=== PATIENT | female | born 1955 | race Caucasian/White ===

== ENCOUNTER 2020-03-05 01:05 | Outpatient (CLI) | payer MEDICAID, SELFPAY ==
--- NOTE | 2020-03-05 16:00 | DI.MAMMO_ITS ---
EXAM: MG MAMMO SCREENING CLINICAL HISTORY: screening TECHNIQUE: Bilateral full field digital CC and MLO mammographic images were obtained with 3D tomosyn thesis and utilizing computer aided detection (CAD). COMPARISON: Available for comparison. FINDINGS: Masses/Architectural Distortion: Stable asymmetric breast tissue is seen in the upper outer quadrant of the left breast. No suspicious masses are seen. Microcalcifications: No suspicious pleomorphic-type are seen. Skin Thickening/Nipple Retraction: None. IMPRESSION: 1. No significant interval change with no specific features of malignancy noted. 2. Unless there is more urgent need, screening mammography is recommended, as per [place] guidelines. BI-RADS Category 1 - Negative Breast Density - Category B - Scattered areas of fibroglandular density A negative radiographic report should not delay biopsy if a dominant or clinically suspicious mass is present. Up to ten percent of cancers are not identified on mammography. A negative report may reinforce clinical impression. Adenosis and dense breasts may obscure an underlying neoplasm. False positive reports average 6 to 10%. Patient will receive a letter notifying them of these results.
== END 2020-03-05 01:25 ==
PROVIDERS: PCP Nurse Practitioner Family; Visit Provider Obstetrics & Gynecology
DX: Z12.31 Encounter for screening mammogram for malignant neoplasm of breast (principal)
CPT/HCPCS: 77063; 77067

== ENCOUNTER 2020-08-27 14:46 | Outpatient (REF) | payer MEDICAID, SELFPAY ==
[2020-08-27 15:32] LABS: HCT 41.4 % (36.0-46.0); HGB 13.8 g/dL (11.2-15.7); MCH 29.8 pg (27.0-33.0); MCHC 33.3 % (32.0-36.0); MCV 89.4 fL (80-95); MPV 10.8 fL (8.0-11.0); Platelet Count 239 10^3/uL (130-400); RBC 4.63 10^6/uL (3.93-5.22); RDW 12.7 % (11.7-14.6); RDW-SD 41.7 fL; WBC 4.65 10^3/uL (4.4-10.8)
[2020-08-27 15:38] LABS: ALT 40 U/L (14-59); AST 25 U/L (15-37); Albumin 3.8 g/dL (3.4-5.0); Alkaline Phosphatase 109 U/L (46-116); Anion Gap 12.6 mmol/L (3-11); BUN 17 mg/dL (7-18); Bilirubin, Total 0.6 mg/dL (0.2-1.0); CO2 23.4 mmol/L (21.0-32.0); CREATININE 0.9 mg/dL (0.55-1.02); Calcium 8.6 mg/dL (8.5-10.1); Chloride 105 mmol/L (98-107); Glucose 104 mg/dL (74-106); Potassium 4.3 mmol/L (3.5-5.1); Sodium 141 mmol/L (136-145); TSH 2.15 uIU/mL (0.36-3.74); Total Protein 7.2 g/dL (6.4-8.2)
[2020-08-27 15:58] LABS: Iron 121 ug/dL (50-170)
[2020-08-27 16:25] LABS: Calculated LDL 191 mg/dL (<100); Cholesterol 271 mg/dL (<200); Ferritin 46 ng/mL (8-252); HDL Cholesterol 57 mg/dL (40-60); Triglyceride 115 mg/dL (<150); Vitamin B12 210 pg/mL (193-986)
[2020-08-27 16:58] LABS: Hemoglobin A1C 5.8 % (<5.7)
== END 2020-08-27 14:47 | disposition home or self-care (01) ==
LOC: NCHCN 14:46
PROVIDERS: PCP Nurse Practitioner Family; Visit Provider Nurse Practitioner Family
DX: E78.00 Pure hypercholesterolemia, unspecified (principal); D50.9 Iron deficiency anemia, unspecified; E53.8 Deficiency of other specified B group vitamins; Z13.29 Encounter for screening for other suspected endocrine disorder; Z13.1 Encounter for screening for diabetes mellitus
CPT/HCPCS: 80053; 80061; 85027; 82607; 82728; 83036; 83540; 84443

== ENCOUNTER 2020-11-27 20:56 | Outpatient (REF) | payer MEDICAID, SELFPAY ==
[2020-11-27 19:18] LABS: Hemoglobin A1C 5.6 % (<5.7)
== END 2020-11-27 20:57 | disposition home or self-care (01) ==
LOC: NCHCN 20:56
PROVIDERS: PCP Nurse Practitioner Family; Visit Provider Nurse Practitioner Family
DX: R73.03 Prediabetes (principal)
CPT/HCPCS: 83036

== ENCOUNTER 2021-06-24 18:08 | Outpatient (REF) | payer MEDICAID, SELFPAY ==
[2021-06-24 16:08] LABS: Hemoglobin A1C 5.8 % (<5.7)
[2021-06-24 16:15] LABS: ALT 45 U/L (14-59); AST 39 U/L (15-37); Albumin 3.6 g/dL (3.4-5.0); Alkaline Phosphatase 110 U/L (46-116); Anion Gap 9.3 mmol/L (3-11); BUN 15 mg/dL (7-18); Bilirubin, Total 0.4 mg/dL (0.2-1.0); CO2 26.7 mmol/L (21.0-32.0); CREATININE 0.8 mg/dL (0.55-1.02); Calcium 8.3 mg/dL (8.5-10.1); Calculated LDL 133 mg/dL (<100); Chloride 102 mmol/L (98-107); Cholesterol 205 mg/dL (<200); Glucose 98 mg/dL (74-106); HDL Cholesterol 60 mg/dL (40-60); Potassium 3.8 mmol/L (3.5-5.1); Sodium 138 mmol/L (136-145); Total Protein 7.3 g/dL (6.4-8.2); Triglyceride 63 mg/dL (<150)
== END 2021-06-24 18:09 | disposition home or self-care (01) ==
LOC: NCHCN 18:08
PROVIDERS: PCP Nurse Practitioner Family; Visit Provider Nurse Practitioner Family
DX: R73.03 Prediabetes (principal); E78.5 Hyperlipidemia, unspecified
CPT/HCPCS: 80053; 80061; 83036

== ENCOUNTER 2021-07-11 00:34 | Outpatient (CLI) | payer MEDICAID, SELFPAY ==
--- NOTE | 2021-07-11 | DI.MAMMO_ITS ---
Exam(s) MAMMO DIAGNOSTIC BI EXAM: MAMMO DIAGNOSTIC BI CLINICAL HISTORY: RT BREAST PAIN, N64.4,FAMILY H/O BREAST CA,Z80.3 TECHNIQUE: Mammograms were interpreted according to the usual protocol including computer analysis w [employer] CAD system, tomosynthesis and C-view imaging. COMPARISON: FINDINGS: The breasts are of moderate density with fairly symmetrical distribution of fibroglandular tissue. F ocal areas of asymmetric density are seen bilaterally unchanged from multiple prior examinations incl uding February 2020. No new mass or clumped microcalcification seen in either breast. IMPRESSION: No specific evidence of malignancy at this time. Routine screening examinations are suggested at yea rly intervals due to the family history of breast carcinoma. BI-RADS Category 1 - Negative Breast Density - Category B - Scattered areas of fibroglandular density
--- OUTSIDE RECORDS SUMMARY | 2021-07-11 00:35 | XMS_ITS | Clinical Summary ---
:1955 Author Organization [facility] Address [address] [place] [address] Care Team Providers Name Role Phone Diego Richardson MD Primary Care Provider Allergies No known active allergies Medications Medication Sig Dispensed Refills Start Date End Date Status FLUoxetine (PROZAC) 40 mg capsule 0 2020 Active NAC 600 mg tablet 0 01/23/2021 A ctive Active Problems Patient Care Coordination Note Formatting of this note might be differe nt from the original. [facility] Neuropsychology Program ASHLYN piercene d to PRISM on: 02/16/2019 Problem Noted Date Elevated antinuclear antibody (TYLER) level 12/10/2010 Surgical History Surgery Date Site/Laterality Comments KNEE ARTHROSCOPY 2004 left Medical History Medical History Date Comments Depression was on prozac since 1990- stopped 07/2010. Family History Medical History Relation Name Comments Arthritis-Osteo Father in his spine Arthritis-Osteo Mother Cancer Mother lymphoma Relation Name Status Comments Father Mother Social History Tobacco Use Types Packs/Day Years Used Date Never Smoker Smokeless Tobacco: Never Used Alcohol Use Standard Drinks/Week Comments No 0 (1 standard drink = 0.6 oz pure alcoho l) Sex Assigned at Date Recorded Not on file Last Filed Vital Signs Vital Sign Reading Time Taken Comments Blood Pressure 120/80 03/24/2021 1307 EST Pulse 71 03/24/2021 1307 EST Temperature - - Respiratory Rate 12 03/24/2021 1307 EST Oxygen Saturation - - Inhaled Oxygen Concentration - - Weight 88 kg (194 lb) 12/10/2010 1308 EDT Height 177.2 cm (5' 9.75) 12/10/2010 1308 EDT Body Mass Index 28.04 12/10/2010 1308 EDT Plan of Treatment Health Maintenance Due Date Last Done Comments Hepatitis C Screen 1955 COVID-19 Vaccine (1) 1961 Insurance Payer Benefit Plan Subscriber ID Effective Phone Address Typ e / Group Dates MEDICAID ACO MEDICAID ACO [id number] 2021-Pres [phone] [address] [place] [address] [place] [id number] Naty Srivastava Personal/Family Self 1955 [address]Home) [place] [address] Naty Srivastava Personal/Family Self 1955 [address] [place] [address] Naty Srivastava Personal/Family Self [address]) [place] [address] Naty Srivastava Personal/Family Self 1955 [address]) [place] [address] Naty Srivastava Personal/Family Self 1955 [address]) [place] [address] Naty Srivastava Personal/Family Self 1955 [address]) [place] [address] Naty Srivastava Personal/Family Self 1955 [address]) [place] [address] Care Teams Lung Gun Operator Relationship Specialty Start Date End Date Matty Richardson MD PCP - General 02/16/19 [address] [place] [address]
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
--- OUTSIDE RECORDS SUMMARY | 2021-07-11 00:36 | XMS_ITS | Encounter Summary ---
:1955 Author Organization [facility] Address [address] [place] [address] Care Team Providers Name Role Phone Diego Richardson MD Primary Care Provider Encounter Details Date Type Department Care Team Description 11/21/2019 Lab Requisition [facility] Outr Resulting Lab, Pathology & Laboratory Provider [facility] [address] [place], [place] [id number] Social History Tobacco Use Types Packs/Day Years Used Date Never Smoker Alcohol Use Standard Drinks/Week Comments No 0 (1 standard drink = 0.6 oz pure alcoho l) Sex Assigned at Date Recorded Not on file documented as of this encounter Plan of Treatment Not on filedocumented as of this encounter Procedures Procedure Name Priority Date/Time Associated Comments Diagnosis DO NOT ORDER Today 11/21/2019 15:49 Results for this STANDALONE - [facility] EDT procedure are in COVID TEST the results section. COVID-19 TESTING Routine 11/21/2019 15:49 Results for this EDT procedure are i n the results section. documented in this encounter Results DO NOT ORDER STANDALONE - [facility] COVID TEST (11/21/2019 15:49 EDT) COVID-19 rt-PCR NEGATIVE Negative [facility] Result Comment: LABORATORY 2019-novel Coronavirus (2019 -nCoV) not detected by the qRT-PCR assay. Consider testing for other respiratory viruses or re-collecting for 2019-nCoV testing. Note: Optimum timing for peak viral levels du ring infections caused by 20 -nCoV have not been determined. Collection of multiple specimens from the same patient may be necessary to detect the virus. Limitations Positive results are indicat edenilson of active infection with SARS-CoV-2 but do not rule out bacterial infection or co-infection with other viruses. The agent detected may not be the definite cause of diseas e. In addition, detection of viral RNA may not indicate the presence of infectious virus or that SARS-CoV-2 is the causative agent for clinical symptoms. Negative results do not prec lude SARS-CoV-2 infection and should not be used as the sole basis for patient management decisions. Negative results must be combined with clinical observations, patient his tory, and epidemiological in formation. False negative results may also occur if amplification inhibitors are present in the specimen or if inadequate numbers of organisms are present in the specimen. Op timum specimen types and chica ing for peak viral levels during infections caused by SARS-CoV-2 have not been fully determined. Collection of multiple specimens (types and time points) from the same patient may be necessary to detect the virus. The test was validated for u se with upper respiratory specimens obtained via nasopharyngeal or oropharyngeal swabs in VTM, UTM, M4, M5, M6, saline, and MTM media. The performance of this test has not be en established for other spe cimens. Specimens collected using other FDA recommended Specimen Collection Materials listed in the FDA COVID-19 [employer] communication (July 20, 2019) are pr ocessed with the caveat that they were not all validated for use with this test and the result must be interpreted in this context. Furthermore, a false negative results may occur if a specimen is improperly collected, transported or handled. If the virus mutates in the RT-PCR target region, SARS-CoV-2 may not be detected or may be detected less predictably. Inhibitors or other types of interference may produce a false negative result. An interference study evaluating the effect of common cold medications was not performed. This test is not FDA-cleared but its performance characteristics were established by our CLIA-certified, CAP-accredited, high complexity laboratory in accordance with CLIA regulations, College of [place] an Pathologists (CAP) guidel tye (Jul 13, 2019), and FDA guidance (Jun 24, 2019). This test is only for use un pamela the Food and Drug Administration's Emergency Use Authorization. Specimen Swab - Entire nasopharynx (body structur e) Performing Organization Address City/State/ZIP Code Phon e Number [facility] [place] [place] COVID-19 TESTING (11/21/2019 15:49 EDT) COVID-19 rt-PCR NEGATIVE Negative [facility] Result Comment: LABORATORY 2019-novel Coronavirus (2019 -nCoV) not detected by the qRT-PCR assay. Consider testing for other respiratory viruses or re-collecting for 2019-nCoV testing. Note: Optimum timing for peak viral levels du ring infections caused by 20 -nCoV have not been determined. Collection of multiple specimens from the same patient may be necessary to detect the virus. Limitations Positive results are indicat edenilson of active infection with SARS-CoV-2 but do not rule out bacterial infection or co-infection with other viruses. The agent detected may not be the definite cause of diseas e. In addition, detection of viral RNA may not indicate the presence of infectious virus or that SARS-CoV-2 is the causative agent for clinical symptoms. Negative results do not prec lude SARS-CoV-2 infection and should not be used as the sole basis for patient management decisions. Negative results must be combined with clinical observations, patient his tory, and epidemiological in formation. False negative results may also occur if amplification inhibitors are present in the specimen or if inadequate numbers of organisms are present in the specimen. Op timum specimen types and chica ing for peak viral levels during infections caused by SARS-CoV-2 have not been fully determined. Collection of multiple specimens (types and time points) from the same patient may be necessary to detect the virus. The test was validated for [facility] with upper respiratory specimens obtained via nasopharyngeal or oropharyngeal swabs in VTM, UTM, M4, M5, M6, saline, and MTM media. The performance of this test has not be en established for other [facility] cimens. Specimens collected using other FDA recommended Specimen Collection Materials listed in the FDA COVID-19 [employer] communication (July 20, 2019) are pr ocessed with the caveat that they were not all validated for use with this test and the result must be interpreted in this context. Furthermore, a false negative results may occur if a specimen is improperly collected, transported or handled. If the virus mutates in the RT-PCR target region, SARS-CoV-2 may not be detected or may be detected less predictably. Inhibitors or other types of interference may produce a false negative result. An interference study evaluating the effect of common cold medications was not performed. This test is not FDA-cleared but its performance characteristics were established by our CLIA-certified, CAP-accredited, high complexity laboratory in accordance with CLIA regulations, College of [employer] an Pathologists (CAP) guidel tye (Jul 13, 2019), and FDA guidance (Jun 24, 2019). This test is only for use un pamela the Food and Drug Administration's Emergency Use Authorization. Performing Lab [facility]OR[facility] SERVICES Specimen Swab Performing Organization Address City/State/ZIP Code Phon e Number [facility] [address] [place] [address] SERVICES [facility] [place], [place] documented in this encounter Visit Diagnoses Not on filedocumented in this encounter Care Teams Prison Librarian Relationship Specialty Start Date End Date Matty Richardson MD PCP - General 02/16/19 [address] [place] [address] documented as of this encounter
--- OUTSIDE RECORDS SUMMARY | 2021-07-11 00:36 | XMS_ITS | Encounter Summary ---
:1955 Author Organization [facility] Address [address] [place] [address] Care Team Providers Name Role Phone Unavailable Primary Care Provider Unavailable Encounter Details Date Type Department Care Team Description 10/20/2000 Hospital Encounter [facility] - Daniela Chavez MD [address] [place], [place] [address] Other Unknown, Provider, [address] [place], [place] [address] Social History Tobacco Use Types Packs/Day Years Used Date Never Assessed Sex Assigned at Date Recorded Not on file documented as of this encounter Discharge Disposition Disposition Code Departure Means Destination Auto Discharge documented in this encounter Plan of Treatment Not on filedocumented as of this encounter Procedures Procedure Name Priority Date/Time Associated Diagnosis Comme nts CYTOPATHOLOGY Routine 10/20/2000 0:00 EDT Result s for this procedure are i n the results section . documented in this encounter Results CYTOPATHOLOGY (10/20/2000 0:00 EDT) Pathology Report: CYTOPATHOLOGY REPORT [facility] Reports generated via electronic interface contain susannah ginal data; however they are lacking the format of the original re port. Caution should be taken when reading/interpreting unfo rmatted reports. Name: ? NATY SRIVASTAVA ? Accession #: ? [id number] : ? 1955 (Age: 45) ??F ?Collect Date: ? 09/25 Location: ? [facility] ? Receive Date : ? 10/22/2000 Provider: ?DANIELA KIM MD Copy to: ? Specimen/Source: ?ThinPrep Pap Test, Cervix/ Endocervix Last Menstrual Period: ? 09/27/00 ? SPECIMEN ADEQUACY ? Satisfactory for evaluation. GENERAL CATEGORIZATION ? Within Normal Limits ? Document reviewed and electronically signed by: ? INDIA Hancock(ASCP) ? Report Date: ??10/26/2000 07:56 End of Report Specimen Performing Organization Address City/State/ZIP Code Phon e Number [facility] [address] [place] [address] SERVICES [facility] [address] [place] [address] documented in this encounter Visit Diagnoses Not on filedocumented in this encounter
--- OUTSIDE RECORDS SUMMARY | 2021-07-11 00:36 | XMS_ITS | Encounter Summary ---
:[address] [facility] Address [address] [place] [address] Care Team Providers Name Role Phone Unknown, Primary Care Provider Encounter Details Date Type Department Care Team Description 08/13/2006 Results Only [facility] - Katarina Kline, CHUCK TENDER conversion [address] [facility] [address] [place], [place] [id number] [place] [phone] Social History Tobacco Use Types Packs/Day Years Used Date Never Assessed Sex Assigned at Date Recorded Not on file documented as of this encounter Plan of Treatment Not on filedocumented as of this encounter Procedures Procedure Name Priority Date/Time Associated Diagnosis Comme nts CYTOPATHOLOGY Routine 08/13/2006 0:00 EDT Result s for this procedure are i n the results section . documented in this encounter Results CYTOPATHOLOGY (08/13/2006 0:00 EDT) Pathology Report: CYTOPATHOLOGY REPORT [facility] Reports generated via electronic interface contain susannah ginal data; however they are lacking the format of the original re port. Caution should be taken when reading/interpreting unfo rmatted reports. Name: ? NATY SRIVASTAVA ? Accession #: ? [id number] : ? 1955 (Age: 50) ??F ?Collect Date: ? 07/26 Location: ? [facility] ? Receive Date : ? 08/16/2006 Provider: ?KATARINA ALFARO CHUCK TENDER Copy to: ? Specimen/Source: ?ThinPrep Pap Test, E ndocervix, processed on [employer] ThinPrep Imaging System, with manual evaluation Last Menstrual Period: ? Menstrual/ Status: ? Menopausal: Cydney Other: ? HPVA - HPV testing requested if ASC-US on the current ThinPrep Pap test. ? SPECIMEN ADEQUACY ? Satisfactory for Evaluation - transformation zone component present GENERAL CATEGORIZATION ? Negative for Intraepithelial Lesion or Malignan cy ? Document reviewed and electronically signed by: ? Melva Bellamy, SCT(ASCP) ? Report Date: ??08/23/2006 09:27 End of Report Specimen Performing Organization Address City/State/ZIP Code Phon e Number [facility] [address] [place] [address] SERVICES [facility] [address] [place] [address] documented in this encounter Visit Diagnoses Not on filedocumented in this encounter Care Teams Nurse'S Assistant Relationship Specialty Start Date End Date Unknown, Provider, PCP - General 12/18/08 11/16/10 documented as of this encounter
--- OUTSIDE RECORDS SUMMARY | 2021-07-11 00:36 | XMS_ITS | Encounter Summary ---
:1955 Author Organization [facility] Address [address] [place] [address] Care Team Providers Name Role Phone Diego Richardson MD Primary Care Provider Reason for Referral Test (Routine) - Closed Specialty Diagnoses / Procedures Referred By Contact Refer red To Contact Diagnoses Destiny Singleton RN Referral ID Status Reason Start Date Expiration Date Visits V isits Requested Authorized [id number] Closed Specialty 12/23/2010 1 1 Services Required Question Answer Reason for Request: CT of Chest to be done at [facility]- Rule out Sarcoidosis- NEEDS TO BE SCHEDULED Comments The purpose of this consult request is t o inform the scheduling staff that a procedure/surgery needs to be prior-auth orized before it is scheduled. Reason for Visit Reason Onset Date Comments Labs Only 12/23/2010 patient requesting l ab orders be mailed to:; Ty Washington [address], [place] [address]. Wants to have done at [facility] along with CT Scan, prefers 01/02 in afternoon or week of 01/05 Encounter Details Date Type Department Care Team Description 12/23/2010 Telephone [facility] Watson Silva Chi, MD Labs Only (patient Rheumatology & [address] requesting lab orders Immunology - [address] be mailed to:; [facility], [facility] Felix, [address], [address] [facility], [address] [place] [address]. [place] [address] [place] Wants to have done [phone] at [facility] along with [phone] (Wo rk) CT Scan, prefers 01/02 in aftern oon or week of 01/05) Social History Tobacco Use Types Packs/Day Years Used Date Never Smoker Alcohol Use Standard Drinks/Week Comments No 0 (1 standard drink = 0.6 oz pure alcoho l) Sex Assigned at Date Recorded Not on file documented as of this encounter Miscellaneous Notes Telephone Encounter - Destiny Will RN - 12/30/2010 0923 EDT Appt info given to pt's friend Ty. elephone Encounter - Destiny Will RN - 12/30/2010 0921 EDT Pt scheduled for CT of chest on Jan 05 at 10:00am at [facility]. Pt needs to arrive 10 min early for Registration. elephone Encounter - Destiny Will RN - 12/23/2010 1114 EDT Lab Req's mailed to pt. I am awaiting prior auth on CT scan so I can get it scheduled at [facility]- documented in this encounter Plan of Treatment Scheduled Referrals Name Type Priority Associated Order Schedule Diagnoses AMB CONSULT PROCEDURE Outpatient Referral Routine Cough Ordered: PRIOR AUTHORIZATION 12/24/19 11 REQUEST documented as of this encounter Visit Diagnoses Diagnosis Cough - Primary documented in this encounter Care Teams Reimbursement Director Relationship Specialty Start Date End Date Matty Richardson MD PCP - General 11/17/10 10/03/18 [address] [place] [address] documented as of this encounter
--- OUTSIDE RECORDS SUMMARY | 2021-07-11 00:36 | XMS_ITS | Encounter Summary ---
:[address] [facility] Address [address] [place] [address] Care Team Providers Name Role Phone Diego Richardson MD Primary Care Provider Encounter Details Date Type Department Care Team Description 12/10/2010 Results Only [facility] Watson Silva Chi, MD Rheumatology & Immunology [address] [place] [address], [address] [place], [place] [id number] [place] [phone] (Wo rk) Social History Tobacco Use Types Packs/Day Years Used Date Never Smoker Alcohol Use Standard Drinks/Week Comments No 0 (1 standard drink = 0.6 oz pure alcoho l) Sex Assigned at Date Recorded Not on file documented as of this encounter Plan of Treatment Not on filedocumented as of this encounter Procedures Procedure Name Priority Date/Time Associated Diagnosis Comme nts TYLER TITER Routine 12/10/2010 15:00 EDT Results for this procedure are i n the results section . documented in this encounter Results (ABNORMAL) TYLER TITER (12/10/2010 15:00 EDT) Pathologist Sig nature TYLER Titer 80 (H)Comment: Diffuse 0 - 40 dils [facility] and speckled TYLER patterns. Specimen Performing Organization Address City/State/ZIP Code Phon e Number [facility] [address] [place] [address] SERVICES [facility] [address] [place] [address] documented in this encounter Visit Diagnoses Not on filedocumented in this encounter Care Teams Finance And Administration Manager Relationship Specialty Start Date End Date Matty Richardson MD PCP - General 11/17/10 10/03/18 [address] [place] [address] documented as of this encounter
--- OUTSIDE RECORDS SUMMARY | 2021-07-11 00:36 | XMS_ITS | Encounter Summary ---
:1955 Author Organization [facility] Address [address] [place] [address] Care Team Providers Name Role Phone Unknown, Primary Care Provider Encounter Details Date Type Department Care Team Description 05/18/2002 Results Only [facility] - Beatriz Alfaro MD conversion [facility] [address] [place], [place] [address] [place] [address] [phone] Social History Tobacco Use Types Packs/Day Years Used Date Never Assessed Sex Assigned at Date Recorded Not on file documented as of this encounter Plan of Treatment Not on filedocumented as of this encounter Procedures Procedure Name Priority Date/Time Associated Diagnosis Comme nts CYTOPATHOLOGY Routine 05/18/2002 0:00 EST Result s for this procedure are i n the results section . documented in this encounter Results CYTOPATHOLOGY (05/18/2002 0:00 EST) Pathology Report: CYTOPATHOLOGY REPORT [facility] Reports generated via electronic interface contain susannah ginal data; however they are lacking the format of the original re port. Caution should be taken when reading/interpreting unfo rmatted reports. Name: ? NATY SRIVASTAVA ? Accession #: ? [id number] : ? 1955 (Age: 46) ??F ?Collect Date: ? 04/27 Location: ? [facility] ? Receive Date : ? 05/23/2002 Provider: ?BEATRIZ MCCALL MD Copy to: ? Specimen/Source: ?Conventional Pap Test, Cer vix Last Menstrual Period: ? 04/27/02 ? SPECIMEN ADEQUACY ? Satisfactory for Evaluation - transformation zone component present GENERAL CATEGORIZATION ? Negative for Intraepithelial Lesion or Malignan cy ? Document reviewed and electronically signed by: ? Melva Bellamy, SCT(ASCP) ? Report Date: ??05/24/2002 14:10 End of Report Specimen Performing Organization Address City/State/ZIP Code Phon e Number [facility] [address] [place] [address] SERVICES [facility] [address] [place] [address] documented in this encounter Visit Diagnoses Not on filedocumented in this encounter Care Teams Workforce Specialist Relationship Specialty Start Date End Date Unknown, Provider, PCP - General 12/18/08 11/16/10 documented as of this encounter
--- OUTSIDE RECORDS SUMMARY | 2021-07-11 00:36 | XMS_ITS | Encounter Summary ---
:1955 Author Organization [facility] Address [address] [place] [address] Care Team Providers Name Role Phone Diego Richardson MD Primary Care Provider Encounter Details Date Type Department Care Team Description 12/21/2014 Hospital Encounter [facility] - Juan Boogie APRN [address] [place] [phone] (Wo rk) Social History Tobacco Use Types Packs/Day Years Used Date Never Smoker Alcohol Use Standard Drinks/Week Comments No 0 (1 standard drink = 0.6 oz pure alcoho l) Sex Assigned at Date Recorded Not on file documented as of this encounter Discharge Diagnoses Diagnosis V72.31 ROUTINE GYNECOLOGICAL EXAMINATION [ICD-9-CM] documented in this encounter Discharge Disposition Disposition Code Departure Means Destination Home or Self Care documented in this encounter Plan of Treatment Not on filedocumented as of this encounter Visit Diagnoses Not on filedocumented in this encounter Care Teams Agent Telegrapher Relationship Specialty Start Date End Date Matty Richardson MD PCP - General 11/17/10 10/03/18 [address] [place] [phone] documented as of this encounter
--- OUTSIDE RECORDS SUMMARY | 2021-07-11 00:36 | XMS_ITS | Encounter Summary ---
:1955 Author Organization [facility] Address [address] [place] [address] Care Team Providers Name Role Phone Diego Richardson MD Primary Care Provider Reason for Visit Reason Onset Date Comments Appointment Related 11/17/2010 Patient will be visi ting november, would like NPV paperwork sent t Ty Washington, [address], [place] [address] . Encounter Details Date Type Department Care Team Description 11/17/2010 Telephone [facility] Jesus Alberto Sutton MD Appointment Related Rheumatology & [address] (Patient wi ll be [facility] visiting month of [facility], November, would like [address] [place], [address] N[place] [address] [place] Ty Washington, [phone] [facility], [place], [place] [phone] (Wo rk) [phone].) Social History Tobacco Use Types Packs/Day Years Used Date Never Assessed Sex Assigned at Date Recorded Not on file documented as of this encounter Miscellaneous Notes Telephone Encounter - Destiny Will RN - 11/18/2010 1031 EDT Pt advised of new appt and is agreeable. documented in this encounter Plan of Treatment Not on filedocumented as of this encounter Visit Diagnoses Not on filedocumented in this encounter Care Teams Team Guide Relationship Specialty Start Date End Date Matty Richardson MD PCP - General 11/17/10 10/03/18 [address] [place] [address] documented as of this encounter
--- OUTSIDE RECORDS SUMMARY | 2021-07-11 00:36 | XMS_ITS | Encounter Summary ---
:1955 Author Organization [facility] Address [address] [place] [address] Care Team Providers Name Role Phone Unknown, Primary Care Provider Diego Richardson MD Primary Care Provider MD Eliezer Primary Care Provider Diego Richardson MD Primary Care Provider Encounter Details Date Type Department Care Team Description 10/21/1999 Hospital Encounter [facility] - Daniela Chavez MD [address] [place], [place] [phone] Other Unknown, Provider, [address], [place] [phone] Social History Tobacco Use Types Packs/Day Years [...] Date/Time Associated Diagnosis Comme nts CYTOPATHOLOGY Routine 10/21/1999 0:00 EDT Result s for this procedure are i n the results section . documented in this encounter Results CYTOPATHOLOGY (10/21/1999 0:00 EDT) Pathology Report: CYTOPATHOLOGY REPORT [facility] Reports generated via electronic interface contain susannah ginal data; however they are lacking the format of the original re port. Caution should be taken when reading/interpreting unfo rmatted reports. Name: ? NATY SRIVASTAVA ? Accession #: ? [id number] : ? 1955 (Age: 44) ??F ?Collect Date: ? 09/25 Location: ? [facility] ? Receive Date : ? 10/23/1999 Provider: ?DANIELA KIM MD Copy to: ? Specimen/Source: ?ThinPrep Pap Test, Cervix/ Endocervix Last Menstrual Period: ? 10/05/99 ? SPECIMEN ADEQUACY ? Satisfactory for evaluation. GENERAL CATEGORIZATION ? Within Normal Limits ? Document reviewed and electronically signed by: ? INDIA Villalba(ASCP) ? Report Date: ??10/24/1999 10:04 End of Report Specimen Performing Organization Address City/State/ZIP Code Phon e Number [facility] [address] [place] [address] [facility] [address] [place] [address] documented in this encounter Visit Diagnoses Not on filedocumented in this encounter Care Teams School Cook Relationship Specialty Start Date End Date Unknown, Provider, PCP - General 12/18/08 11/16/10 Matty Richardson MD PCP - General 11/17/10 10/03/18 [address] [place] [phone] Roque Martins MD PCP - General 10/04/18 02/15/19 [address] [place] [address] Matty Richardson MD PCP - General 02/16/19 [address] [place] [phone] documented as of this encounter
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
--- OUTSIDE RECORDS SUMMARY | 2021-07-11 00:36 | XMS_ITS | Encounter Summary ---
:1955 Author Organization [facility] Address [address] [place] [address] Care Team Providers Name Role Phone Unavailable Primary Care Provider Unavailable Encounter Details Date Type Department Care Team Description 08/13/2006 Hospital Encounter [facility] - Matty Richardson MD [address] [place] [phone] Other Katarina Rainey, DANIA [address] [address] [address] [place], [place] [phone] Social History Tobacco Use Types Packs/Day Years Used Date Never Assessed Sex Assigned at Date Recorded Not on file documented as of this encounter Discharge Disposition Disposition Code Departure Means Destination Home or Self Care documented in this encounter Plan of Treatment Not on filedocumented as of this encounter Procedures Procedure Name Priority Date/Time Associated Comments Diagnosis CYTOPATHOLOGY Routine 12/12/2008 0:00 Results fo r this EDT procedure are i n the results section. THYROPEROXIDASE ANTIBODY Routine 12/05/2007 17:05 Results for this EDT procedure are i n the results section. HLA B27 SCREEN, DNA Routine 12/05/2007 17:05 Resu lts for this EDT procedure are i n the results section. ANTI DNA (DOUBLE Routine 12/05/2007 17:05 Results for this STRANDED) EDT procedure are i n the results section. ANTI THYROGLOBULIN Routine 12/05/2007 17:05 Resul ts for this EDT procedure are i n the results section. documented in this encounter Results CYTOPATHOLOGY (12/12/2008 0:00 EDT) Pathology Report: CYTOPATHOLOGY REPORT ? [facility] ? LAB Reports generated via electr theAudience interface contain original data; ? however they are lacking the format of the original report. ? Caution should be taken when reading/interpreting unformatted reports. ? Name: ? NATY SRIVASTAVA ? Accession #: ? [id number] ? : ? 1955 (Age: 53) ??F ?Collect Date: ? 12/12/2008 ? Location: ? [facility] ? Receive Date: ? 12/17/2008 ? Provider: ?SAUNDRA DESIREE ANGELOER PA-C ? Copy to: ? Specimen/Source: ? Pap Test, Endocervix, ThinPrep Imaging System with ? manual evaluation ? Last Menstrual Period: ? Other: ? HPVA - HPV testing requested if ASC-US on the current ThinPrep Pap test. ? SPECIMEN ADEQUACY ? Satisfactory for Eval uation ? - transformation zone compon ent present ? GENERAL CATEGORIZATION ? Negative for Intraepi thelial Lesion or Malignancy ? Document reviewed and electr onically signed by: ? Katarina Joel, CT(ASCP ) ? Report Date: ??08/28/ 2009 13:17 ? End of Report ? Specimen Performing Organization Address City/[facility] Phon e Number [facility] [address] [place] [address] SERVICES [facility] [address] [place] [address] ANTI THYROGLOBULIN (12/05/2007 17:05 EDT) Pathologist Sig nature Thyroglobulin Ab <20 0 - 40 IU/mL [facility] Specimen Performing Organization Address City/State/ZIP Code Phon e Number [facility] [address] [place] [address] SERVICES [facility] [address] [place] [address] THYROPEROXIDASE ANTIBODY (12/05/2007 17:05 EDT) Pathologist Sig nature Thyroid Peroxidase Ab <10 <35 IU/mL [facility] Specimen Performing Organization Address City/[facility] Phon e Number [facility] [address] [place] [address] SERVICES [facility] [address] [place] [address] ANTI DNA (DOUBLE STRAND) (12/05/2007 17:05 EDT) Pathologist Sig nature Anti DNA (DS) Neg NEG Dils [facility] Specimen Performing Organization Address City/State/ZIP Code Phon e Number [facility] [address] [place] [address] SERVICES [facility] [address] [place] [address] HLA B27 (12/05/2007 17:05 EDT) Pathologist Sig nature HLA B27 HLA B27 not identified [facility] Specimen Performing Organization Address [facility] Code Phon e Number [facility] [address] [place] [address] SERVICES [facility] [address] [place] [address] documented in this encounter Visit Diagnoses Not on filedocumented in this encounter
--- OUTSIDE RECORDS SUMMARY | 2021-07-11 00:36 | XMS_ITS | Encounter Summary ---
:1955 Author Organization [facility] Address [address] [place] [address] Care Team Providers Name Role Phone Diego Richardson MD Primary Care Provider Encounter Details Date Type Department Care Team Description 08/31/2012 Hospital Encounter [facility] [address] [place] [address] [place], [place] [phone] Social History Tobacco Use Types Packs/Day Years [...] on filedocumented in this encounter Care Teams Recruitment Intern Relationship Specialty Start Date End Date Matty Richardson MD PCP - General 11/17/10 10/03/18 [address] [place] [address] documented as of this encounter
--- OUTSIDE RECORDS SUMMARY | 2021-07-11 00:36 | XMS_ITS | Encounter Summary ---
:[address] [facility] Address [address] [place] [address] Care Team Providers Name Role Phone Unavailable Primary Care Provider Unavailable Encounter Details Date Type Department Care Team Description 08/10/2005 Hospital Encounter [facility] - Josafat Duran, Other SALES SERVICE SUPERVISOR [address] [facility] [address] [place] [address] [place] [address] Social History Tobacco Use Types Packs/Day Years [...]
--- OUTSIDE RECORDS SUMMARY | 2021-07-11 00:36 | XMS_ITS | Encounter Summary ---
:[address] [facility] Address [address] [place] [address] Care Team Providers Name Role Phone Diego Richardson MD Primary Care Provider Encounter Details Date Type Department Care Team Description 03/06/2011 Results Only [facility] Kimberly Boland MD Laboratory Services - [address] [place] [address] [place] [address] [place] [address] [phone] Social History Tobacco Use Types Packs/Day Years Used Date Never Smoker Alcohol Use Standard Drinks/Week Comments No 0 (1 standard drink = 0.6 oz pure alcoho l) Sex Assigned at Date Recorded Not on file documented as of this encounter Plan of Treatment Not on filedocumented as of this encounter Procedures Procedure Name Priority Date/Time Associated Diagnosis Comme nts PAP TEST- RESULT Routine 03/06/2011 0:00 Results for this ONLY EST procedure are i n the results section. documented in this encounter Results PAP TEST- RESULT ONLY (03/06/2011 0:00 EST) Pathology Report: CYTOPATHOLOGY REPORT [facility] Reports generated via electronic interface contain susannah ginal data; however they are lacking the format of the original re port. Caution should be taken when reading/interpreting unfo rmatted reports. Name: ? NATY SRIVASTAVA ? Accession #: ? [id number] ? : ? 1955 (Age: 55) ??F ?Collect Da te: ? 03/06/2011 ? Location: ? [facility] ? Receive Date: ? 011 ? Provider: SAUNDRA BOLAND MD Copy to: ? Final Report SPECIMEN ADEQUACY ? Satisfactory for Evaluation - transformation zone component present GENERAL CATEGORIZATION ? Negative for Intraepithelial Lesion or Malignan cy ?? Menstural/ Status: ??Post Menopausal Other: Post menopausal bleeding Specimen/Source: ??Pap Test, Cervix, ThinPrep Imaging System with manual evaluation Document reviewed and electronically signed by: ? LAURENCE MERCADO MD ? Report ??Date: 03/16/2011 14:47 HPV with Pap Test ? Date Ordered: ? 03/12/2011 ? Status: ?? Signed Out ?Date Complete: ? 03/23/2011 ? By: ??S ystem Interface ? Date Reported: ? 03/23/2011 ? Interpretation RESULT: Positive for one or more of HPV types 16,18,31 ,33,35,39,45, 51,52,56,58,59, or 68. These high/intermediate risk HP V types are associated with some squamous intraepithelia l lesions and cervical cancers. Comments Document reviewed and electronically signed by: ? System Interface ? Report date: 03/23/2011 By the signature above, the attending physician certif ies that he/she has personally conducted a gross and/or microscopic examin ation of the described specimens and rendered or confirmed the above diagnosi s. End of Report Specimen Performing Organization Address City/State/ZIP Code Phon e Number [facility] [address] [place] [address] SERVICES [facility] [address] [place] [address] documented in this encounter Visit Diagnoses Not on filedocumented in this encounter Care Teams Project Management Analyst Relationship Specialty Start Date End Date Matty Richardson MD PCP - General 11/17/10 10/03/18 [address] [place] [address] documented as of this encounter
--- OUTSIDE RECORDS SUMMARY | 2021-07-11 00:36 | XMS_ITS | Encounter Summary ---
:[address] [facility] Address [address] [place] [address] Care Team Providers Name Role Phone Mikhail, Primary Care Provider Diego Richardson MD Primary Care Provider MD Eliezer Primary Care Provider Diego Richardson MD Primary Care Provider Encounter Details Date Type Department Care Team Description 11/07/2002 Hospital Encounter [facility] - Josafat Duran, Other CUT PRESS OPERATOR [address] [place], [place] [phone] [place] [address] Social History Tobacco Use Types Packs/Day Years [...] Date/Time Associated Diagnosis Comme nts CYTOPATHOLOGY Routine 11/07/2002 0:00 EDT Result s for this procedure are i n the results section . documented in this encounter Results CYTOPATHOLOGY (11/07/2002 0:00 EDT) Pathology Report: CYTOPATHOLOGY REPORT [facility] Reports generated via electronic interface contain susannah ginal data; however they are lacking the format of the original re port. Caution should be taken when reading/interpreting unfo rmatted reports. Name: ? NATY SRIVASTAVA ? Accession #: ? [id number] : ? 1955 (Age: 47) ??F ?Collect Date: ? 10/24 Location: ? [facility] ? Receive Date : ? 11/09/2002 Provider: ?TY DURAN INSTRUMENT CALIBRATOR Copy to: ? Specimen/Source: ?ThinPrep Pap Test, Cervix/ Endocervix Last Menstrual Period: ? 10/24/02 ? SPECIMEN ADEQUACY ? Satisfactory for Evaluation - transformation zone component present GENERAL CATEGORIZATION ? Negative for Intraepithelial Lesion or Malignan cy ? Document reviewed and electronically signed by: ? CLAYTON Barrios(ASCP) ? Report Date: ??11/13/2002 10:45 End of Report Specimen Performing Organization Address City/State/ZIP Code Phon e Number [facility] [address] [place] [address] SERVICES [facility] [address] [place] [address] documented in this encounter Visit Diagnoses Not on filedocumented in this encounter Care Teams Alumni Coordinator Relationship Specialty Start Date End Date Unknown, MD Thuy PCP - General 12/18/08 11/16/10 Matty Richardson MD PCP - General 11/17/10 10/03/18 [address] [place] [address] Roque Martins MD PCP - General 10/04/18 02/15/19 [address] [place] [address] Matty Richardson MD PCP - General 02/16/19 [address] [place] [address] documented as of this encounter
--- OUTSIDE RECORDS SUMMARY | 2021-07-11 00:36 | XMS_ITS | Encounter Summary ---
:1955 Author Organization [facility] Address [address] [place] [address] Care Team Providers Name Role Phone Diego Richardson MD Primary Care Provider Encounter Details Date Type Department Care Team Description 08/31/2012 Results Only [facility] Beatriz Saldaña, Laboratory Services - [facility] [address] [place] [address] [place], [place] [id number] [phone] Social History Tobacco Use Types Packs/Day Years Used Date Never Smoker Alcohol Use Standard Drinks/Week Comments No 0 (1 standard drink = 0.6 oz pure alcoho l) Sex Assigned at Date Recorded Not on file documented as of this encounter Plan of Treatment Not on filedocumented as of this encounter Procedures Procedure Name Priority Date/Time Associated Diagnosis Comme nts PAP TEST- RESULT Routine 08/31/2012 0:00 Results for this ONLY EDT procedure are i n the results section. documented in this encounter Results PAP TEST- RESULT ONLY (08/31/2012 0:00 EDT) Pathology Report: CYTOPATHOLOGY REPORT [facility] Reports generated via electronic interface contain susannah ginal data; however they are lacking the format of the original re port. Caution should be taken when reading/interpreting unfo rmatted reports. Name: ? NATY SRIVASTAVA ? Accession #: ? [id number] ? : ? 1955 (Age: 57) ??F ?Collect Da te: ? 08/31/2012 ? Location: ? [facility] ? Receive Date: ? 013 ? Provider: BEATRIZ SALDAÑA PA-C Copy to: ? Final Report SPECIMEN ADEQUACY ? Unsatisfactory for Evaluation, - insufficient numbers of squamous epith elial cells (less than 10% of expected cellularity) - obscuring contamination, possibly lubricant GENERAL CATEGORIZATION ? Specimen processed and examined, but unsatisfac tory for evaluation of epithelial abnormality. Recommend repeat Pap test or further follow up, as cli nically indicated. ?? Specimen/Source: ??Pap Test, Endocervix, ThinPrep Imag ing System with manual evaluation Document reviewed and electronically signed by: ? INDIA Goetz(ASCP) ? Report ??Date: 09/09/2012 09:53 HPV with Pap Test ? Date Ordered: ? 09/09/2012 ? Status: ?? Signed Out ?Date Complete: ? 09/13/2012 ? By: ??S ystem Interface ? Date Reported: ? 09/13/2012 ? Interpretation RESULT: Negative for HPV. No E6 or E7 mRNA is detected from HPV types 16,18,31,3 3,35, 39,45,51,52,56,58,59,66, and 68 by welding inspector media shahab amplification. This specimen had inadequate cells for cytologic interpretation. Negative results of HPV testing should be interpreted with caution. If clinically indicated, ple ase consider submission of an additional specimen. Comments Document reviewed and electronically signed by: ? System Interface ? Report date: 09/13/2012 By the signature above, the attending physician certif ies that he/she has personally conducted a gross and/or microscopic examin ation of the described specimens and rendered or confirmed the above diagnosi s. End of Report Specimen Performing Organization Address City/State/ZIP Code Phon e Number [facility] [address] [place] [address] SERVICES [facility] [address] [place] [address] documented in this encounter Visit Diagnoses Not on filedocumented in this encounter Care Teams Raspberry Checker Relationship Specialty Start Date End Date Matty Richardson MD PCP - General 11/17/10 10/03/18 [address] [place] [address] documented as of this encounter
--- OUTSIDE RECORDS SUMMARY | 2021-07-11 00:36 | XMS_ITS | Encounter Summary ---
:1955 Author Organization [facility] Address [address] [place] [address] Care Team Providers Name Role Phone Diego Richardson MD Primary Care Provider Reason for Referral Radiology Services (Routine) - Closed Specialty Diagnoses / Procedures Referred By Contact Refer red To Contact Diagnoses Arthralgia Cough Watson Silva Chi, MD Procedures CT CHEST [address] [place] [phone] Referral ID Status Reason Start Date Expiration Date Visits Requ ested Visits Authorized [id number] Closed 12/23/2010 1 1 Reason for Visit Reason Onset Date Comments Results 12/16/2010 [facility] RESULTS Encounter Details Date Type Department Care Team Description 12/16/2010 Telephone [facility] Watson Silva Chi, MD Results ([facility] Rheumatology & [address] [place] [address] RESULTS) Immunology - [address] [phone] (Wo rk) Social History Tobacco Use Types Packs/Day Years Used Date Never Smoker Alcohol Use Standard Drinks/Week Comments No 0 (1 standard drink = 0.6 oz pure alcoho l) Sex Assigned at Date Recorded Not on file documented as of this encounter Miscellaneous Notes Telephone Encounter - Destiny Will RN - 12/23/2010 1109 EDT I will mail Req's for labs to be done and will set up Chest CT at [facility]- elephone Encounter - Watson Silva Chi, MD - 12/17/2010 1903 EDT Spoke to pt about lab results: 1. Elevated Lfts- could be related to herbal meds. Pt will stop the herbs, and have repeat LFTs with hepatitis panel in several weeks. External lab request to be sent to pt at following address: [facility] [address], [place] [address] 2. Elevated JAMAL - screening test for sarcoid. CXR is normal; will check Chest CT which can be doneat [facility] to rule out hilar adenopathy. 3. Low + TYLER and thyroid antibodies of unclear significance- low grade thyroiditis? Pt's alternate # other than cell # after today: [phone] signed by Watson Silva Chi, MD at 12/17/2010 19:03 EDT documented in this encounter Plan of Treatment Scheduled Orders Name Type Priority Associated Diagnoses Order S chedule CT CHEST Imaging Routine Arthralgia 12/17/2010 Cough documented as of this encounter Visit Diagnoses Diagnosis Elevated LFT's Other abnormal blood chemistry Arthralgia Pain in joint, site unspecified Cough documented in this encounter Care Teams Youth Services Librarian Relationship Specialty Start Date End Date Matty Richardson MD PCP - General 11/17/10 10/03/18 [address] [place] [address] documented as of this encounter
--- OUTSIDE RECORDS SUMMARY | 2021-07-11 00:36 | XMS_ITS | Encounter Summary ---
:1955 Author Organization [facility] Address [address] [place] [address] Care Team Providers Name Role Phone Diego Richardson MD Primary Care Provider Encounter Details Date Type Department Care Team Description 12/10/2010 Phlebotomy Only [facility] [employer]orer [employer], Galindo briceño; - [facility] Outpatient Positive TYLER (antinuclear an tibody); [address] [place] [address] Social History Tobacco Use Types Packs/Day Years Used Date Never Smoker Alcohol Use Standard Drinks/Week Comments No 0 (1 standard drink = 0.6 oz pure alcoho l) Sex Assigned at Date Recorded Not on file documented as of this encounter Plan of Treatment Not on filedocumented as of this encounter Procedures Procedure Name Priority Date/Time Associated Comments Diagnosis SSB ANTIBODIES BY GILDA Routine 12/10/2010 15:00 Positive TYLER Results for this EDT (antinuclear procedure are i n antibody) the results section. SSA ANTIBODIES BY GILDA Routine 12/10/2010 15:00 Positive TYLER Results for this EDT (antinuclear procedure are i n antibody) the results section. SM (MARQUEZ) ANTIBODY Routine 12/10/2010 15:00 Positive TYLER Resu lts for this EDT (antinuclear procedure are i n antibody) the results section. CCP ANTIBODIES Routine 12/10/2010 15:00 Arthralgia Results f or this EDT procedure are i n the results section. ARTHRITIS 1 Routine 12/10/2010 15:00 Arthralgia Results for this EDT procedure are i n the results section. THYROPEROXIDASE ANTIBODY Routine 12/10/2010 15:00 Fatigue Results for this EDT procedure are i n the results section. VITAMIN D (25,OH) Routine 12/10/2010 15:00 Arthralgia Result s for this EDT procedure are i n the results section. PARVOVIRUS B19 AB, IGG, Routine 12/10/2010 15:00 Arthralgia Results for this IGM, S EDT procedure are i n the results section. WIRELESS SALES MANAGER ANTIBODIES BY GLIDA Routine 12/10/2010 15:00 Positive TYLER Results for this EDT (antinuclear procedure are i n antibody) the results section. ANTI DNA (DOUBLE Routine 12/10/2010 15:00 Positive TYLER Results for this STRANDED) EDT (antinuclear procedure are i n antibody) the results section. ANTI THYROGLOBULIN Routine 12/10/2010 15:00 Fatigue Resul ts for this EDT procedure are i n the results section. ANCA, IFA Routine 12/10/2010 15:00 Arthralgia Results for this EDT procedure are i n the results section. SED RATE Routine 12/10/2010 15:00 Arthralgia Results for this EDT Positive TYLER procedure are i n (antinuclear the results antibody) section. ANTISTREP O TITER, S Routine 12/10/2010 15:00 Arthralgia Res ults for this EDT procedure are i n the results section. ANGIOTENSIN CONVERTING Routine 12/10/2010 15:00 Arthralgia R esults for this ENZYME (JAMAL) EDT procedure are i n the results section. C4 COMPLEMENT Routine 12/10/2010 15:00 Positive TYLER Results fo r this EDT (antinuclear procedure are i n antibody) the results section. C REACTIVE PROTEIN Routine 12/10/2010 15:00 Arthralgia Results for this EDT Positive TYLER procedure are i n (antinuclear the results antibody) section. TSH Routine 12/10/2010 15:00 Fatigue Results for this EDT procedure are i n the results section. CK Routine 12/10/2010 15:00 Positive TYLER Results for this EDT (antinuclear procedure are i n antibody) the results section. COMPREHENSIVE METABOLIC Routine 12/10/2010 15:00 Arthralgia Results for this PANEL (CMP) EDT procedure are i n the results section. documented in this encounter Results (ABNORMAL) THYROPEROXIDASE ANTIBODY (12/10/2010 15:00 EDT) Pathologist Sig nature Thyroperoxidase Ab 66 (H) <61 U/mL [facility] Specimen Blood specimen (specimen) Performing Organization Address [facility] Phon e Number [facility] [address] [place] [address] SERVICES [facility] [address] [place] [address] ANTI THYROGLOBULIN (12/10/2010 15:00 EDT) Pathologist Sig nature Thyroglobulin Ab 37 <61 U/mL [facility] Specimen Blood specimen (specimen) Performing Organization Address [facility] Phon e Number [facility] [address] [place] [address] SERVICES [facility] [address] [place] [address] VITAMIN D (25,OH) (12/10/2010 15:00 EDT) 25OH Vitamin D Tot 26.5 ng/ml [facility] Comment: LAB Reference Range: <10 ng/ml: Deficient 10-30 ng/m l: Insufficient 30-100 ng/ml: Sufficient >100 ng/ml: Toxic Specimen Blood specimen (specimen) Performing Organization Address [facility] Phon e Number [facility] [address] [place] [address] SERVICES [facility] [address] [place] [address] TSH (12/10/2010 15:00 EDT) Pathologist Sig nature TSH 2.76 0.35 - 5.00 uIU/ml [facility] Specimen Blood specimen (specimen) Performing Organization Address [facility] Phon e Number [facility] [address] [place] [address] SERVICES [facility] [address] [place] [address] ANTI DNA (DOUBLE STRAND) (12/10/2010 15:00 EDT) Anti DNA (DS) <25 <25 IU [facility] Comment: Results Interpretation IU's ?Interpretation <25 ?Negative 25 TO <30 ?Weakly Positive 30 TO <60 ?Low Positive 60 TO <200 ? Positive >200 ? Strong Positive Specimen Blood specimen (specimen) Performing Organization Address [facility] Phon e Number [facility] [address] [place] [address] SERVICES [facility] [address] [place] [address] SS-B/LA ANTIBODY, IGG, SERUM (12/10/2010 15:00 EDT) SS B/La Ab, IgG, S <0.2Reference range: <1.0 (Negative) [facility] Unit: U LAB Performed by: [facility] [employer] [place] and, [address], ?? [place] [address], Nick Setter: Paradise Medley, Ph.D. Specimen Blood specimen (specimen) Performing Organization Address City/[facility]/ZIP Code Phon e Number [facility] [address] [place] [address] SERVICES [facility] [address] [place] [address] SS-A/RO ANTIBODY, IGG, SERUM (12/10/2010 15:00 EDT) SS A/Ro Ab, IgG, S <0.2Reference range: <1.0 (Negative) [facility] Unit: U LAB Performed by: [facility] [employer] [place] and, [address] [facility], ?? [place] [address], Nick Setter: Paradise Medley, Ph.D. Specimen Blood specimen (specimen) Performing Organization Address City/[facility]/ZIP Code Phon e Number [facility] [address] [place] [address] SERVICES [facility] [address] [place] [address] SM ANTIBODIES, IGG, SERUM (12/10/2010 15:00 EDT) Sm Ab, IgG, S <0.2Reference range: <1.0 (Negative) [facility] Unit: U Performed by: [facility] [employer] [place] and, [address], ?? [place] [address], Nick Setter: Paradise Medley, Ph.D. Specimen Performing Organization Address City/[facility]/ZIP Code Phon e Number [facility] [address] [place] [address] SERVICES [facility] [address] [place] [address] WIRELESS SALES MANAGER ANTIBODY, IGG, SERUM (12/10/2010 15:00 EDT) Pathologist [facility] WIRELESS SALES MANAGER Ab, IgG, S <0.2Reference range: <1.0 (Negative) [place] [facility] Unit: U Performed by: [facility] and, [address], [place], ?? [place] [address], Nick Setter: Paradise Medley, Ph.D. Specimen Blood specimen (specimen) Performing Organization Address City/[facility] Phon e Number [facility] [address] [place] [address] SERVICES [facility] [address] [place] [address] PARVOVIRUS ANTIBODY (12/10/2010 15:00 EDT) [facility] Parvovirus B19 Ab, 1.26Reference range: <0.90 [facility] IgG, S Unit: index LAB Positive (>1.10) ? Parvovirus B19 Ab, 0.08Reference range: <0.90 [facility] IgM, S Unit: index LAB Parvovirus [facility] Interpretation Results suggest past infecti on. ? LAB Performed by: [facility] [place], [address], ? [place] [address], Lab Dire ctor: Paradise Medley, Ph.D. ? Specimen Blood specimen (specimen) Performing Organization Address [facility] Phon e Number [facility] [address] [place] [address] SERVICES [facility] [address] [place] [address] SED. RATE:WESTERGREN (12/10/2010 15:00 EDT) Pathologist Sig nature Sed. Rate Westergren 19 0 - 30 mm/hr [facility] Specimen Blood specimen (specimen) Performing Organization Address City/[facility] Code Phon e Number [facility] [address] [place] [address] SERVICES [facility] [address] [place] [address] C-REACTIVE PROTEIN (12/10/2010 15:00 EDT) Pathologist Sig nature C-Reactive Protein <0.7 <1.0 mg/dl [facility] Specimen Blood specimen (specimen) Performing Organization Address [facility] Phon e Number [facility] [address] [place] [address] SERVICES [facility] [address] [place] [address] (ABNORMAL) COMPREHENSIVE METABOLIC PANEL (CMP) (12/10/2010 15:00 EDT) Pathologist Sig nature Potassium 3.9 3.5 - 5.0 mEq/L [facility] Sodium 141 136 - 145 mEq/L [facility] Chloride 103 96 - 110 mEq/L [facility] CO2 28 24 - 32 mEq/L [facility] Total Alkaline 117 38 - 126 U/L [facility] Phosphatase Bilirubin, Total <0.5 0.2 - 1.3 mg/dl [facility] AST 73 (H) 15 - 46 U/L [facility] ALT 115 (H) 9 - 52 U/L [facility] Albumin 4.1 3.4 - 4.9 g/dl [facility] Total Protein 7.2 6.5 - 8.3 g/dl [facility] Creatinine 0.80 0.7 - 1.5 mg/dl [facility] GFR, Calculated >60 ml/min/1.73m2 [facility] BUN 14 10 - 26 mg/dl [facility] Calcium 9.0 8.5 - 10.5 [facility] mg/dl Calculated Calcium 9.3 8.5 - 10.5 [facility] mg/dl Glucose, Serum 81 70 - 100 mg/dl [facility] Fasting? No [facility] Specimen Blood specimen (specimen) Performing Organization Address City/[facility]/ZIP Code Phon e Number [facility] [address] [place] [address] SERVICES [facility] [address] [place] [address] CK (12/10/2010 15:00 EDT) Pathologist Sig nature CK 70 30 - 135 U/L [facility] Specimen Blood specimen (specimen) Performing Organization Address City/[facility]/ZIP Code Phon e Number [facility] [address] [place] [address] SERVICES [facility] [address] [place] [address] CCP ANTIBODIES (12/10/2010 15:00 EDT) Pathologist Sig nature CCP Antibodies 0.25 <5.01 U/ml [facility] Specimen Performing Organization Address [facility]/ZIP Code Phon e Number [facility] [address] [place] [address] SERVICES [facility] [address] [place] [address] C4 COMPLEMENT (12/10/2010 15:00 EDT) Pathologist Sig nature C4 Complement 26 16 - 38 mg/dl [facility] Specimen Blood specimen (specimen) Performing Organization Address City/[facility]/ZIP Code Phon e Number [facility] [address] [place] [address] SERVICES [facility] [address] [place] [address] ARTHRITIS 1 (12/10/2010 15:00 EDT) Anti Nuclear Ab Positive at 40 0 - 40 Dils [facility] dils, titer to follow. Rheumatoid Factor <20 <20 IU/ml [facility] Specimen Blood specimen (specimen) Performing Organization Address City/[facility]/ZIP Code Phon e Number [facility] [address] [place] [address] SERVICES [facility] [address] [place] [address] ANTI STREPTOLYSIN O (12/10/2010 15:00 EDT) Pathologist Sig nature Anti Strep O Screen <200 <200 IU/mL [facility] Specimen Blood specimen (specimen) Performing Organization Address City/[facility]/ZIP Code Phon e Number [facility] [address] [place] [address] SERVICES [facility] [address] [place] [address] (ABNORMAL) ANGIOTENSIN CONVERTING ENZYME (JAMAL) (12/10/2010 15:00 EDT) Angiotensin 90Reference range: 8 to 53 [facility] Converting Enzyme Unit: U/L LAB The use of angiotensin conve rting enzyme (JAMAL)-inhibiting ? antihypertensive drugs will cause decreased JAMAL values. ? Performed or Referred by: [facility], [address] ? [place] [address], Lab Dir: All Riggins III, ? MD ? (H) Specimen Blood specimen (specimen) Performing Organization Address [facility] Phon e Number [facility] [address] [place] [address] SERVICES [facility] [address] [place] [address] ANCA (12/10/2010 15:00 EDT) Pathologist Sig nature ANCA Neg NEG Dils [facility] Specimen Blood specimen (specimen) Performing Organization Address [facility] Phon e Number [facility] [address] [place] [address] SERVICES [facility] [address] [place] [address] documented in this encounter Visit Diagnoses Diagnosis Arthralgia Pain in joint, site unspecified Positive TYLER (antinuclear antibody) Other and unspecified nonspecific immuno logical findings Fatigue Other malaise and fatigue documented in this encounter Care Teams Air Control/Anti Air Warfare Officer Relationship Specialty Start Date End Date Matty Richardson MD PCP - General 11/17/10 10/03/18 [address] [place] [address] documented as of this encounter
--- OUTSIDE RECORDS SUMMARY | 2021-07-11 00:36 | XMS_ITS | Encounter Summary ---
:1955 Author Organization [facility] Address [address] [place] [address] Care Team Providers Name Role Phone Diego Richardson MD Primary Care Provider Reason for Visit Reason Comments Joint Pain hands and feet New Patient Visit Pt is being seen at the requ est of Dr Matty Richardson for evaluation of diffuse jt pains, +TYLER. Encounter Details Date Type Department Care Team Description 12/10/2010 Office Visit [facility] Watson Silva Chi, MD Arthralgia; Rheumatology & [address] [place] [address] Positive AN A (antinuclear antibody); Immunology - [facility] Osteoarthritis; [facility]; [address] [place] [address], [address] [place], [place] [address] [place] [address] [phone] (Wo rk) Social History Tobacco Use Types Packs/Day Years Used Date Never Smoker Alcohol Use Standard Drinks/Week Comments No 0 (1 standard drink = 0.6 oz pure alcoho l) Sex Assigned at Date Recorded Not on file documented as of this encounter Last Filed Vital Signs Vital Sign Reading Time Taken Comments Blood Pressure 100/60 12/10/2010 1308 EDT Pulse 72 12/10/2010 1308 EDT Temperature - - Respiratory Rate - - Oxygen Saturation - - Inhaled Oxygen Concentration - - Weight 88 kg (194 lb) 12/10/2010 1308 EDT Height 177.2 cm (5' 9.75) 12/10/2010 1308 EDT Body Mass Index 28.04 12/10/2010 1308 EDT documented in this encounter Patient Instructions Patient InstructionsWatson Silva Chi, MD - 12/10/2010 14:06 EDT Try ibuprofen 2 tabs three times a day with food. documented in this encounter Discharge Disposition Disposition Code Departure Means Destination Auto Discharge documented in this encounter Progress Notes Watson Silva Chi, MD - 12/10/2010 1303 EDT Images from the original note were not included. Subjective: Patient ID: Naty Srivastava is an 55 y.o. female. Chief Complaint Patient presents with ??? Joint Pain hands and feet ??? New Patient Visit Pt is being seen at the request of Dr Matty Richardson for evaluation of diffuse jt pains, +TYLER. HPI Comments: Has had jt swelling, stiffness, pain since August 2010 while at yoga class- got dizzy, nauseated, and developed diffuse arthralgias. Got tested for Lyme disease x 3 (since she is from [facility]) and all tests were neg. Feet and hands have been painfu; hands tingle at night. 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 Gets h/a's. Had severe swelling in hands and feet whichnow come and go. Taking minor bupleurum)- with decr in jt swelling. Cranial sacral work has helped the jt pains as well. Still very stiff, fingers are popping with use. Was on prozac 1991 80 mg qd, which pt stopped July 31 on her own. Has had arthroscopic surgery on L knee. Past feet swelling for yrs- worse at end of day and admits to feet pain at end of day on the bottoms dating back yrs. 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 Not riding her bike due to jt pains. Neck is tight. Went to Dr Huston (Rheum) in 2007 for workup of TYLER 320, upper arm pruritis with skin bumps- no dx made after extensive testing done to r/o lupus and other autoimmune or inflammatory conditions. Continues to have intermittent itching of bilat proximal arms with rash over past several yrs- denies sun sensitivity. Hips have been more stiff. Knees have swollen from past injuries. Feet currently are not bad. Had recent testing showing TYLER + 320. June cruised in [place]. Did jacqueline seed for several yrs; has done herbal and cambucha for yrs. Now doing a cleanse- using some algae formulation. Did try mobic for 2 weeks without benefit. Patient Active Problem List Diagnoses Code ??? Positive TYLER (antinuclear antibody) 795.79AQ Past Medical History Diagnosis Date ??? Depression was on prozac since 1990- stopped 07/2010. Past Surgical History Procedure Date ??? Knee arthroscopy 2003 left Family History Problem Relation Age of Onset ??? Arthritis-Osteo Mother ??? Cancer Mother lymphoma ??? Arthritis-Osteo Father in his spine Social History Substance Use Topics ??? Smoking status: Never Smoker ??? Smokeless tobacco: Not on file ??? Alcohol Use: No No current outpatient prescriptions on file prior to encounter. No Known Allergies Review of Systems Constitutional: Positive for malaise/fatigue (since August: has felt more exhausted). Negative for fever, chills, weight loss and diaphoresis. HENT: Negative for neck pain. No oral ulcers No dry mouth Eyes: Negative for pain. No dry eyes Respiratory: Positive for cough (dry, at night; none during the day). Negative for shortness of breath and wheezing. No pleurisy Cardiovascular: Positive for chest pain (chest tightness). Negative for palpitations and leg swelling. No raynauds Gastrointestinal: Positive for diarrhea (sev times a day for years). Negative for heartburn, nausea,abdominal pain, constipation and blood in stool. Genitourinary: Positive for frequency. Negative for dysuria and hematuria. Musculoskeletal: Positive for back pain (chronic; no worse) and joint pain. Negative for myalgias. Hours of Am stiffness since august Skin: Positive for rash (on bilat upper arms only, that come and go) and itching (on arms). No sun sensitive rashes no psoriasis Neurological: Positive for dizziness, tingling (bilat hands at night; and off and on during the day)and headaches (mild; has tmj issues). Negative for focal weakness and seizures. Endo/Heme/Allergies: Does not bruise/bleed easily. No DM, no thyroid Psychiatric/Behavioral: Negative for depression. The patient is not nervous/anxious and does not have insomnia (awakens exhausted). All other systems reviewed and are negative. - See HPI Objective: BP 100/60 Pulse 72 Ht 177.2 cm (69.75) Wt 87.998 kg (194 lb) BMI 28.04 kg/m2 Physical Exam Vitals reviewed. Constitutional: She is oriented to person, place, and time. She appears well- nourished. No distress. Upbeat midaged female accompanied by significant other. HENT: Head: Normocephalic and atraumatic. Mouth/Throat: Oropharynx is clear and moist. Eyes: Conjunctivae and extraocular motions are normal. Pupils are equal, round, and reactive to light. Neck: No thyromegaly present. Cardiovascular: Normal rate, regular rhythm and normal heart sounds. No murmur heard. Pulmonary/Chest: Breath sounds normal. No respiratory distress. She has no wheezes. She has no rales. Abdominal: Soft. There is no hepatomegaly. No tenderness. Musculoskeletal: A complete msk exam was done and significant findings shown on homonculus. Lymphadenopathy: She has no cervical adenopathy. Neurological: She is alert and oriented to person, place, and time. No cranial nerve deficit. Gait normal. Tinel's negative bilat wrists Skin: No rash noted. Tanned. Psychiatric: She has a normal mood and affect. Her behavior is normal. Reviewed [address] Hillary Rivas (project construction manager with [facility]): Antibodies for dsDNA, thyroiditis, celiac all negative. Tyler was 1:320. [facility] 10/15/10: CBC normal; ESR 14 TYLER 1:320, diffuse, speckled Lyme ab negative RF < 20 Ehrlichia, anaplasma, babesia,- all negative Assessment: Plan: Naty was seen today for joint pain and new patient visit. Diagnoses and associated orders for this visit: Arthralgia New onset in August this year: etiology unclear. Although pt gives hx consistent with an inflammatoryarthritis, her exam today is relatively benign with little active inflammation seen. In the settingof +TYLER will work up the TYLER for underlying autoimmune disease such as SLE, Sjogrens, RA, etc. Willalso screen for Strep infection, parvovirus- these conditions are assoc with jt pains. Will also screen for Sarcoidosis which can cause arthritis. Advised pt use ibuprofen 400 mg tid with food for her current jt symptoms; pt will think it over first. - ANCA; Future - Angiotensin Converting Enzyme (JAMAL); Future - Anti Streptolysin O; Future - Arthritis 1; Future - CCP Antibodies; Future - Comprehensive Metabolic Panel (CMP); Future - C-Reactive Protein; Future - Sed. Rate:Westergren; Future - Parvovirus Antibody; Future - Vitamin D (25,OH); Future - CHEST PA AND LATERAL Positive tyler (antinuclear antibody) 1:320 Work up with more specific serologies. - C4 Complement; Future - CK; Future - C-Reactive Protein; Future - Sed. Rate:Westergren; Future - POULTRY INSEMINATOR Antibody, IgG, Serum; Future - Sm Antibodies, IgG, Serum; Future - SS-A/Ro Antibody, IgG, Serum; Future - SS-B/La Antibody, IgG, Serum; Future - Anti DNA (Double Strand); Future Osteoarthritis Evident on exam; may be accounting for much of her jt pains. May be that stopping Prozac in July unmasked underlying OA discomfort she's had all along. Consider using Cymbalta if pt has to resume another antidepressant- since Cymbalta can also help pain. Fatigue Screen for thyroid dysfxn; and thyroiditis which can be assoc with +TYLER. - TSH; Future - Anti Thyroglobulin; Future - Thyroperoxidase Antibody; Future - CHEST PA AND LATERAL Cough Screen for sarcoid, ILD- can be assoc with jt pains. - CHEST PA AND LATERAL Barriers to learning identified: No Patient verbalizes understanding and agrees with plan Yes Copy of this note will be sent to PCP: Dr Matty Richardson F/u prn- will contact pt if workup returns with any abnormalities. documented in this encounter Plan of Treatment Not on filedocumented as of this encounter Procedures Procedure Name Priority Date/Time Associated Diagnosis Comme nts CHEST PA AND Routine 12/10/2010 14:28 Fatigue Results for this LATERAL EDT Arthralgia procedure are in Cough the results section. documented in this encounter Results (ABNORMAL) THYROPEROXIDASE ANTIBODY (12/10/2010 15:00 EDT) Pathologist Sig nature Thyroperoxidase Ab 66 (H) <61 U/mL [facility] Specimen Blood specimen (specimen) Performing Organization Address [facility] Phon e Number [facility] [address] [place] [address] SERVICES [facility] [address] [place] [address] ANTI THYROGLOBULIN (12/10/2010 15:00 EDT) Pathologist Sig nature Thyroglobulin Ab 37 <61 U/mL [facility] Specimen Blood specimen (specimen) Performing Organization Address [facility] Phon e Number [facility] [address] [place] [address] SERVICES [facility] [address] [place] [address] VITAMIN D (25,OH) (12/10/2010 15:00 EDT) 25OH Vitamin D Tot 26.5 ng/ml [facility] Comment: LAB Reference Range: <10 ng/ml: Deficient 10-30 ng/m l: Insufficient 30-100 ng/ml: Sufficient >100 ng/ml: Toxic Specimen Blood specimen (specimen) Performing Organization Address [facility] Phon e Number [facility] [address] [place] [address] SERVICES [facility] [address] [place] [address] TSH (12/10/2010 15:00 EDT) Pathologist Sig nature TSH 2.76 0.35 - 5.00 uIU/ml [facility] Specimen Blood specimen (specimen) Performing Organization Address [facility] Phon e Number [facility] [address] [place] [address] SERVICES [facility] [address] [place] [address] ANTI DNA (DOUBLE STRAND) (12/10/2010 15:00 EDT) Anti DNA (DS) <25 <25 IU [facility] Comment: Results Interpretation IU's ?Interpretation <25 ?Negative 25 TO <30 ?Weakly Positive 30 TO <60 ?Low Positive 60 TO <200 ? Positive >200 ? Strong Positive Specimen Blood specimen (specimen) Performing Organization Address City/[facility]/ZIP Code Phon e Number [facility] [address] [place] [address] SERVICES [facility] [address] [place] [address] SS-B/LA ANTIBODY, IGG, SERUM (12/10/2010 15:00 EDT) SS B/La Ab, IgG, S <0.2Reference range: <1.0 (Negative) [facility] Unit: U LAB Performed by: [facility] [email or web address] [place] and, [address] [facility], ?? [place] [address], Food Consultant: Paradise Medley, Ph.D. Specimen Blood specimen (specimen) Performing Organization Address City/[facility] Phon e Number [facility] [address] [place] [address] SERVICES [facility] [address] [place] [address] SS-A/RO ANTIBODY, IGG, SERUM (12/10/2010 15:00 EDT) SS A/Ro Ab, IgG, S <0.2Reference range: <1.0 (Negative) [facility] Unit: U LAB Performed by: [facility] [email or web address] [place], [address] [facility], ?? [place] [address], Food Consultant: Paradise Medley, Ph.D. Specimen Blood specimen (specimen) Performing Organization Address City/[facility]/ZIP Code Phon e Number [facility] [address] [place] [address] SERVICES [facility] [address] [place] [address] SM ANTIBODIES, IGG, SERUM (12/10/2010 15:00 EDT) Sm Ab, IgG, S <0.2Reference range: <1.0 (Negative) [facility] Unit: U Performed by: [facility] [email or web address] [place], [address] [facility], ?? [place] [address], Food Consultant: Paradise Medley, Ph.D. Specimen Performing Organization Address City/[facility]/ZIP [facility] Phon e Number [facility] [address] [place] [address] SERVICES [facility] [address] [place] [address] POULTRY INSEMINATOR ANTIBODY, IGG, SERUM (12/10/2010 15:00 EDT) Pathologist [facility] POULTRY INSEMINATOR Ab, IgG, S <0.2Reference range: <1.0 (Negative) [place] [facility] Unit: U Performed by: [facility] and, [address], [place], ?? [place] [address], Food Consultant: Paradise Medley, Ph.D. Specimen Blood specimen (specimen) Performing Organization Address [facility] Phon e Number [facility] [address] [place] [address] SERVICES [facility] [address] [place] [address] PARVOVIRUS ANTIBODY (12/10/2010 15:00 EDT) Pathologist [facility] Parvovirus B19 Ab, 1.26Reference range: <0.90 [facility] IgG, S Unit: index LAB Positive (>1.10) ? Parvovirus B19 Ab, 0.08Reference range: <0.90 [facility] IgM, S Unit: index LAB Parvovirus [facility] Interpretation Results suggest past infecti on. ? LAB Performed by: [facility] [place], [address], ? [place] [address], Lab Dire ctor: Paradise Medley, Ph.D. ? Specimen Blood specimen (specimen) Performing Organization Address [facility] Phon e Number [facility] [address] [place] [address] SERVICES [facility] [address] [place] [address] SED. RATE:WESTERGREN (12/10/2010 15:00 EDT) Pathologist Sig nature Sed. Rate Westergren 19 0 - 30 mm/hr [facility] Specimen Blood specimen (specimen) Performing Organization Address City/[facility]/ZIP Code Phon e Number [facility] [address] [place] [address] SERVICES [facility] [address] [place] [address] C-REACTIVE PROTEIN (12/10/2010 15:00 EDT) Pathologist Sig [facility] C-Reactive Protein <0.7 <1.0 mg/dl [facility] Specimen Blood specimen (specimen) Performing Organization Address City/[facility]/ZIP Code Phon e Number [facility] [address] [place] [address] SERVICES [facility] [address] [place] [address] (ABNORMAL) COMPREHENSIVE METABOLIC PANEL (CMP) (12/10/2010 15:00 [...] Bilirubin, Total <0.5 0.2 - 1.3 mg/dl [facility] AST 73 (H) 15 - [...] Specimen Blood specimen (specimen) Performing Organization Address City/State/ZIP Code Phon e Number [facility] [address] [place] [address] SERVICES [facility] [address] [place] [address] CK (12/10/2010 15:00 EDT) Pathologist Sig nature CK 70 30 - 135 U/L [facility] Specimen Blood specimen (specimen) Performing Organization Address City/[facility]/ZIP Code Phon e Number [facility] [address] [place] [address] SERVICES [facility] [address] [place] [address] CCP ANTIBODIES (12/10/2010 15:00 EDT) Pathologist Sig nature CCP Antibodies 0.25 <5.01 U/ml [facility] Specimen Performing Organization Address City/[facility]/ZIP [facility] Phon e Number [facility] [address] [place] [address] SERVICES [facility] [address] [place] [address] C4 COMPLEMENT (12/10/2010 15:00 EDT) Pathologist Sig nature C4 Complement 26 16 - 38 mg/dl [facility] Specimen Blood specimen (specimen) Performing Organization Address [facility] Phon e Number [facility] [address] [place] [address] SERVICES [facility] [address] [place] [address] ARTHRITIS 1 (12/10/2010 15:00 EDT) Anti Nuclear Ab Positive at 40 0 - 40 Dils [facility] dils, titer to follow. Rheumatoid Factor <20 <20 IU/ml [facility] Specimen Blood specimen (specimen) Performing Organization Address City/[facility]/ZIP [facility] Phon e Number [facility] [address] [place] [address] SERVICES [facility] [address] [place] [address] ANTI STREPTOLYSIN O (12/10/2010 15:00 EDT) Pathologist Sig nature Anti Strep O Screen <200 <200 IU/mL [facility] Specimen Blood specimen (specimen) Performing Organization Address City/[facility]/ZIP Code Phon e Number [facility] [address] [place] [address] SERVICES [facility] [address] [place] [address] (ABNORMAL) ANGIOTENSIN CONVERTING ENZYME (JAMAL) (12/10/2010 15:00 EDT) Angiotensin 90Reference range: 8 to 53 [facility] Converting Enzyme Unit: U/L LAB The use of angiotensin conve rting enzyme (JAMAL)-inhibiting ? antihypertensive drugs will cause decreased JAMAL values. ? Performed or Referred by: [facility] Path, [address] ? [place] [address], Lab Dir: All Riggins III, ? MD ? (H) Specimen Blood specimen (specimen) Performing Organization Address City/[facility]/ZIP Code Phon e Number [facility] [address] [place] [address] SERVICES [facility] [address] [place] [address] ANCA (12/10/2010 15:00 EDT) Pathologist Sig nature ANCA Neg NEG Dils [facility] Specimen Blood specimen (specimen) Performing Organization Address City/State/ZIP Code Phon e Number [facility] [address] [place] [address] SERVICES [facility] [address] [place] [address] CHEST PA AND LATERAL (12/10/2010 14:28 EDT) Anatomical Region Laterality Modality Other Specimen Narrative [facility] - 12/10/2010 16:39 EDT CHEST PA AND LAT ??Dec 10, 2010 02:28:00 PM Signs and Symptoms/Comments: ?? 780.79-F ATIGUE-I9 719.12-[id number] recurrent cough for 3 mos Impression: 1. Negative chest. Description: Dual energy chest without c omparisons. The heart is normal and the lungs are clear. Procedure Note 12/10/2010 CHEST PA AND LAT Dec 10, 2010 02:28:00 PM Signs and Symptoms/Comments: 780.79-FA TIGUE-I9 719.29-[id number] recurrent cough for 3 mos Impression: 1. Negative chest. Description: Dual energy chest without c omparisons. The heart is normal and the lungs are clear. Performing Organization Address City/State/ZIP Code Phon e Number [facility] [place] [facility] documented in this encounter Visit Diagnoses Diagnosis Arthralgia Pain in joint, site unspecified Positive TYLER (antinuclear antibody) Other and unspecified nonspecific immuno logical findings Osteoarthritis Osteoarthrosis, unspecified whether gene ralized or localized, unspecified site Fatigue Other malaise and fatigue Cough documented in this encounter Care Teams Boat Builder Relationship Specialty Start Date End Date Matty Richardson MD PCP - General 11/17/10 10/03/18 [address] [place] [address] documented as of this encounter
--- OUTSIDE RECORDS SUMMARY | 2021-07-11 00:36 | XMS_ITS | Encounter Summary ---
:[address] [facility] Address [address] [place] [address] Care Team Providers Name Role Phone Diego Richardson MD Primary Care Provider Encounter Details Date Type Department Care Team Description 10/07/2012 Hospital En[facility] [place] [address] [place] [address] [place], [place] [phone] Social History Tobacco Use Types Packs/Day Years [...] on filedocumented in this encounter Care Teams Tavern Operator Relationship Specialty Start Date End Date Matty Richardson MD PCP - General 11/17/10 10/03/18 [address] [place] [address] documented as of this encounter
--- OUTSIDE RECORDS SUMMARY | 2021-07-11 00:36 | XMS_ITS | Encounter Summary ---
:1955 Author Organization [facility] Address [address] [place] [address] Care Team Providers Name Role Phone Unavailable Primary Care Provider Unavailable Encounter Details Date Type Department Care Team Description 12/12/2008 Hospital Encounter [facility] - Lata Morton MD [address] [address] [address] [place] [phone] (Wo rk) Social History Tobacco Use Types Packs/Day Years Used Date Never Assessed Sex Assigned at Date Recorded Not on file documented as of this encounter Discharge Disposition Disposition Code Departure Means Destination Home-Health Care Svc documented in this encounter Plan of Treatment Not on filedocumented as of this encounter Visit Diagnoses Not on filedocumented in this encounter
--- OUTSIDE RECORDS SUMMARY | 2021-07-11 00:36 | XMS_ITS | Encounter Summary ---
:1955 Author Organization [facility] Address [address] [place] [address] Care Team Providers Name Role Phone Diego Richardson MD Primary Care Provider Encounter Details Date Type Department Care Team Description 12/21/2014 Results Only [facility]- Chi Boogie, BUSINESS INSTRUCTOR PRISM [address] [phone] [place] [phone] (Wo rk) Social History Tobacco Use Types [...] Diagnosis Comme nts PAP TEST- RESULT Routine 12/21/2014 0:00 Results for this ONLY EDT procedure are i n the results section. documented in this encounter Results PAP TEST- RESULT ONLY (12/21/2014 0:00 EDT) Pathology Report: CYTOPATHOLOGY REPORT [facility] Reports generated via electronic interface contain susannah ginal data; SERVICES however they are lacking the format of the original re port. Caution should be taken when reading/interpreting unfo rmatted reports. Name: ? NATY SRIVASTAVA ? Accession #: ? [id number] ? : ? 1955 (Age: 59 ) ??F ?Collect Date: ? 12/21/2014 ? Location: ? [facility] ? Receive Date: ? 12/25/19 15 ? Provider: SAMUEL BOOGIE BUSINESS INSTRUCTOR Copy to: ? Final Report SPECIMEN ADEQUACY ? Satisfactory for Evaluation - assessment of transformation zone component not appl icable ( e.g. atrophy, vaginal sample, hysterectomy) GENERAL CATEGORIZATION ? Negative for Intraepithelial Lesion or Malignan cy ?? Specimen/Source: ??Pap Test, Endocervix, ThinPrep Imag ing System with manual evaluation Document reviewed and electronically signed by: ? Marilee Cunningham, CT(ASCP)(IAC) ? Report ??Date: 12/26/2014 09:29 HPV with Pap Test ? Date Ordered: ? 12/26/2014 ? Status: ?? S igned Out ?Date Complete: ? 12/28/2014 ? By: ??Sys tem Interface ? Date Reported: ? 12/28/2014 ? Interpretation RESULT: Negative for HPV. No E6 or E7 mRNA is detected from HPV types 16,18,31,3 3,35, 39,45,51,52,56,58,59,66, and 68 by car shifter media shahab amplification. Comments Document reviewed and electronically signed by: ? System Interface ? Report date: 12/28/2014 By the signature above, the attending physician certif ies that he/she has personally conducted a gross and/or microscopic examin ation of the described specimens and rendered or confirmed the above diagnosi s. End of Report Specimen Performing Organization Address City/State/ZIP Code Phon e Number [facility] [address] [place] [address] SERVICES documented in this encounter Visit Diagnoses Not on filedocumented in this encounter Care Teams Supervisor Sanding Relationship Specialty Start Date End Date Matty Richardson MD PCP - General 11/17/10 10/03/18 [address] [place] [address] documented as of this encounter
== END 2021-07-11 00:54 ==
PROVIDERS: PCP Nurse Practitioner Family; Visit Provider Nurse Practitioner Family
DX: N64.4 Mastodynia (principal); Z80.3 Family history of malignant neoplasm of breast
CPT/HCPCS: 77062; 77066; G0279

== ENCOUNTER 2021-07-15 14:46 | Outpatient (REF) | payer MEDICAID, SELFPAY ==
--- OUTSIDE RECORDS SUMMARY | 2021-07-15 14:48 | XMS_ITS | Encounter Summary ---
:1955 Author Organization [facility] Address [address] [place] [address] Care Team Providers Name Role Phone Diego Richardson MD Primary Care Provider Encounter Details Date Type Department Care Team Description 12/10/2010 Results Only [facility] Watson Silva Chi, MD Rheumatology & Immunology [address] [place] [address], [address] [place], [place] [address] [place] [phone] (Wo rk) Social History Tobacco Use Types [...] Organization Address City/State/ZIP Code Phon e Number [facility] [address] [place] [address] SERVICES [facility] [address] [place] [address] documented in this encounter Visit Diagnoses Not on filedocumented in this encounter Care Teams Barrel Endshaker Adjuster Relationship Specialty Start Date End Date Matty Richardson MD PCP - General 11/17/10 10/03/18 [address] [place] [address] documented as of this encounter
--- OUTSIDE RECORDS SUMMARY | 2021-07-15 14:48 | XMS_ITS | Encounter Summary ---
:1955 Author Organization [facility] Address [address] [place] [address] Care Team Providers Name Role Phone Diego Richardson MD Primary Care Provider Encounter Details Date Type Department Care Team Description 10/07/2012 Results Only [facility] Beatriz Saldaña, Laboratory Services - Poppy NICHOLS [facility] [address] [place] [address] [place], [place] [id number] [phone] Social History Tobacco Use Types Packs/Day Years Used Date Never Smoker Alcohol Use Standard Drinks/Week Comments No 0 (1 standard drink = 0.6 oz pure alcoho l) Sex Assigned at Date Recorded Not on file documented as of this encounter Plan of Treatment Not on filedocumented as of this encounter Procedures Procedure Name Priority Date/Time Associated Diagnosis Comme nts PAP TEST- RESULT Routine 10/07/2012 0:00 Results for this ONLY EDT procedure are i n the results section. documented in this encounter Results PAP TEST- RESULT ONLY (10/07/2012 0:00 EDT) Pathology Report: CYTOPATHOLOGY REPORT [facility] Reports generated via electronic interface contain susannah ginal data; however they are lacking the format of the original re port. Caution should be taken when reading/interpreting unfo rmatted reports. Name: ? NATY SRIVASTAVA ? Accession #: ? [id number] : ? 1955 (Age: 57) ??F ?Collect Date: ? 09/24 Location: ? [facility] ? Receive Date : ? 10/10/2012 Provider: ?BEATRIZ SALDAÑA PA-C Copy to: ? Specimen/Source: ?Pap Test, En docervix, ThinPrep Imaging System with manual evaluation Last Menstrual Period: ? SPECIMEN ADEQUACY ? Unsatisfactory for Evaluation - obscuring contamination, p ossibly lubricant, which precludes interpretation of 75% or more of the epithelial cells GENERAL CATEGORIZATION ? Specimen processed and examined, but unsatisfac tory for evaluation of epithelial abnormality. ??Recommend repe at Pap test in 2-4 months as stated in ASCCP's 2012 Updated Consensus Guidelines. ? Document reviewed and electronically signed by: ? INDIA Villalba([facility]) ? Report Date: ??10/17/2012 10:16 End of Report Specimen Performing Organization Address City/State/ZIP Code Phon e Number [facility] [address] [place] [address] SERVICES [facility] [address] [place] [address] documented in this encounter Visit Diagnoses Not on filedocumented in this encounter Care Teams Candle Maker Relationship Specialty Start Date End Date Matty Richardson MD PCP - General 11/17/10 10/03/18 [address] [place] [address] documented as of this encounter
--- OUTSIDE RECORDS SUMMARY | 2021-07-15 14:48 | XMS_ITS | Encounter Summary ---
:1955 Author Organization [facility] Address [address] [place] [address] Care Team Providers Name Role Phone Diego Richardson MD Primary Care Provider Encounter Details Date Type Department Care Team Description 10/07/2012 Hospital Encounter [facility] [address] [place] [address] [place], [place] [phone] Social History Tobacco Use Types Packs/Day Years [...] on filedocumented in this encounter Care Teams Playground Equipment Erector Relationship Specialty Start Date End Date Matty Richardson MD PCP - General 11/17/10 10/03/18 [address] [place] [address] documented as of this encounter
--- OUTSIDE RECORDS SUMMARY | 2021-07-15 14:48 | XMS_ITS | Encounter Summary ---
:1955 Author Organization [facility] Address [address] [place] [address] Care Team Providers Name Role Phone Diego Richardson MD Primary Care Provider Encounter Details Date Type Department Care Team Description 01/05/2020 Lab Requisition [facility] Nadege Coreas Enco unter for gynecological examination (general) (routine) without abnormal findings; Pathology & MD Encounter for screening for human papill omavirus (HPV) Laboratory Medicine [address] [place], [place] 111 [facility] [address] [place], [place] [phone] [address] (Work) [phone] Social History Tobacco Use Types Packs/Day Years Used Date Never Smoker Alcohol Use Standard Drinks/Week Comments No 0 (1 standard drink = 0.6 oz pure alcoho l) Sex Assigned at Date Recorded Not on file documented as of this encounter Plan of Treatment Not on filedocumented as of this encounter Procedures Procedure Name Priority Date/Time Associated Diagnosis Comme nts PAP TEST Today 01/04/2020 14:00 Encounter for Results fo r this EDT gynecological procedure are in examination (general) the re sults (routine) without section. abnormal finding s Encounter for screening for human papillomavirus (HPV) HUMAN PAPILLOMAVIRUS Today 01/04/2020 14:00 Encounter for Re sults for this (HPV) DETECTION-HIGH EDT gynecological proced ure are in RISK TYPES examination (general) the re sults (routine) without section. abnormal finding s Encounter for screening for human papillomavirus (HPV) documented in this encounter Results HUMAN PAPILLOMAVIRUS (HPV) DETECTION-HIGH RISK TYPES (01/04/2020 14:00 EDT) Human Papillomavirus NegativeComment: No Negative [facility] (HPV) Detection-High E6 or E7 mRNA is CENTER LABORATOR Y Types detected from HPV SERVICES types 16,18,31,33,35,39,45 ,51,52,56,58,59,66, and 68 by roll line operator mediated amplification. Specimen Pap Test - Cervix and/or Endocervix Performing Organization Address City/[facility]/ZIP Code Phon e Number [facility] [address] [place] [address] SERVICES PAP TEST (01/04/2020 14:00 EDT) Specimens A. Cervix and/or [facility] MEDICAL Endocervix , ThinPrep CENTER Imaging System with LABORATORY Manual Evaluation SERVICES Specimen Adequacy Satisfactory for [facility] MEDICAL Evaluation - CENTER transformation zone LABORATORY component present SERVICES General Negative for [facility] intraepithelial TYRONE lesion or malignancy LABORATORY SERVICES Attestation . [facility] Electronically CENTER signed by BETO Morales CT(ASCP) on SERVICES 01/15/2020 at 15 31 Clinical History NONE [facility] SERVICES HPV The result for the Human Pap illomavirus (HPV) Detection-High Risk Types is Negative. No E6 or E7 mRNA is detected from HPV types 16,18,31,33,35,39,45,51,52,56,58,59,66, and 68 by roll line operator mediated [facility] MEDICAL amplification.Testing was p erformed on specimen [id number] and was resulted on 01/15/2020 1530 EDT by OMID, LAB INSTRUMENT RESULTS IN CENTER LABORATORY SERVICES Performing Lab [facility] SERVICES Scanned Images [facility] SERVICES Specimen Pap Test - Cervix and/or Endocervix Performing Organization Address City/[facility]/ZIP Code Phon e Number [facility] [address] [place] [address] SERVICES documented in this encounter Visit Diagnoses Diagnosis Encounter for gynecological examination (general) (routine) without abnormal findings Encounter for screening for human papill omavirus (HPV) Special screening examination for human papillomavirus (HPV) documented in this encounter Care Teams Cone Worker Relationship Specialty Start Date End Date Matty Richardson MD PCP - General 02/16/19 [address] [place] [address] documented as of this encounter
--- OUTSIDE RECORDS SUMMARY | 2021-07-15 14:48 | XMS_ITS | Encounter Summary ---
:1955 Author Organization [facility] Address [address] [place] [address] Care Team Providers Name Role Phone Diego Richardson MD Primary Care Provider Reason for Visit Reason Comments Cognitive Changes Referral (Routine) - Authorization Not Required Specialty Diagnoses / Procedures Referred By Contact Refer red To Contact Psychology Roque Martins M D [address] [place] [address] Fax: Referral ID Status Reason Start Expiration Visits Visits Date Date Requested Authorized [id number] Authorization Not 1 1 Required Encounter Details Date Type Department Care Team Description 02/16/2019 Office Visit [facility] Bola Thorne W, Post c oncussive syndrome (Primary Dx); Medical Psychology - PhD Depression, unspecified depression type [facility] [address] [place] [address] [facility] [phone] [facility] [place] [address] Social History Tobacco Use Types [...] 02/16/2019. She was referred by Dr.Jeanmarie Martins ([facility]) and was seen as an outpatientat the [facility] on the [facility] the [facility]. PERTINENT BACKGROUND INFORMATION: Ms. Srivastava was born in [place] and grew up in [place]. Her mother at age 66 of lymphoma, [...] obtaining a BA in Human Services from [employer] 1979. 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 She currently resides in [place], intermittently with Mr. [place], who still keeps a residence of his own. She has a 35-year-old daughter living in [place]. Ms. 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 3. Attention and processing [...] average with the left hand. Her basic systems software specialist strength was in the superiorrange, bilaterally. 5. [...] relative strength identified upon testing include basic systems software specialist strength, visuomotor processing speed, spatial organization, and [...] Examination - 82 minutes (1 unit of 02565) provided by neuropsychologist; Professional Services - 153 minutes (1 unit of 12707 and 2 unit(s) of 93632) provided by neuropsychologist; Testing by Neuropsychologist -66 minutes (1 unit of 83076 and 1 unit(s) of 32339) consisting of test administration and scoring; Testing by Rerecording Mixer - 210 minutes (1 unit of 06829 and 6 unit([place]) of [address]) consisting of administration and scoring. Bola Thorne, PhD Psychologist - Doctorate documented in this encounter Plan of Treatment Not on filedocumented as of this encounter Visit Diagnoses Diagnosis Post concussive syndrome - Primary Postconcussion syndrome Depression, unspecified depression type documented in this encounter Care Teams Principal Developer Relationship Specialty Start Date End Date Matty Richardson MD PCP - General 02/16/19 [address] [place] [phone] documented as of this encounter
--- OUTSIDE RECORDS SUMMARY | 2021-07-15 14:48 | XMS_ITS | Encounter Summary ---
:1955 Author Organization [facility] Address [address] [place] [address] Care Team Providers Name Role Phone Diego Richardson MD Primary Care Provider Reason for Visit Reason Onset Date Comments Prior Auth, Other (i.e. radiology, etc.) 12/30/2010 Encounter Details Date Type Department Care Team Description 12/30/2010 Telephone [facility] Watson Silva Chi, MD Prior Auth, Other Rheumatology & [address] (i.e. radio logy, [facility] etc.) [facility], [address], [address] [place], [place] [address] [place] [address] [phone] (Wo rk) Social History Tobacco Use Types Packs/Day Years Used Date Never Smoker Alcohol Use Standard Drinks/Week Comments No 0 (1 standard drink = 0.6 oz pure alcoho l) Sex Assigned at Date Recorded Not on file documented as of this encounter Miscellaneous Notes Telephone Encounter - Melva Marquez - 12/30/2010 0858 EDT The patient has been authorized for a CT Scan of the Chest to be done at [facility]. This authorization is valid from 12/30/10-03/30/11 with auth# [id number]. documented in this encounter Plan of Treatment Not on filedocumented as of this encounter Visit Diagnoses Not on filedocumented in this encounter Care Teams Sales Vendor Relationship Specialty Start Date End Date Matty Richardson MD PCP - General 11/17/10 10/03/18 [address] [facility] [address] documented as of this encounter
--- OUTSIDE RECORDS SUMMARY | 2021-07-15 14:48 | XMS_ITS | Encounter Summary ---
:1955 Author Organization [facility] Address [address] [place] [address] Care Team Providers Name Role Phone Diego Richardson MD Primary Care Provider Encounter Details Date Type Department Care Team Description 08/31/2012 Results Only [facility] Beatriz Saldaña, Laboratory Services - Poppy NICHOLS [facility] [address] [place] [address] [place], [place] [id number] [phone] Social History Tobacco Use Types Packs/Day Years [...] ? NATY SRIVASTAVA ? Accession #: ? [id number] ? : ? 1955 (Age: 57) ??F [...] types 16,18,31,3 3,35, 39,45,51,52,56,58,59,66, and 68 by instructional support specialist media shahab amplification. This specimen had inadequate [...] Organization Address City/State/ZIP Code Phon e Number [facility] [address] [place] [address] SERVICES [facility] [address] [place] [address] documented in this encounter Visit Diagnoses Not on filedocumented in this encounter Care Teams Investigator Fraud Relationship Specialty Start Date End Date Matty Richardson MD PCP - General 11/17/10 10/03/18 [address] [place] [address] documented as of this encounter
--- OUTSIDE RECORDS SUMMARY | 2021-07-15 14:48 | XMS_ITS | Encounter Summary ---
:1955 Author Organization [facility] Address [address] [place] [address] Care Team Providers Name Role Phone Diego Richardson MD Primary Care Provider Reason for Referral Test (Routine) - Closed Specialty Diagnoses / Procedures Referred By Contact Refer red To Contact Diagnoses Destiny Singleton RN Referral ID Status Reason Start Date Expiration Date Visits V isits Requested Authorized [id number] Closed Specialty 12/23/2010 1 1 Services Required Question Answer Reason for Request: CT of Chest to be done at [facility]- Rule out Sarcoidosis- NEEDS TO BE SCHEDULED Comments The purpose of this consult request is t o inform the scheduling staff that a procedure/surgery needs to be prior-auth orized before it is scheduled. Reason for Visit Reason Onset Date Comments Labs Only 12/23/2010 patient requesting l ab orders be mailed to:; Ty Washington [address], [place] [address]. Wants to have done at [facility] along with CT Scan, prefers 01/02 in afternoon or week of 01/05 Encounter Details Date Type Department Care Team Description 12/23/2010 Telephone [facility] Watson Silva Chi, MD Labs Only (patient Rheumatology & [address] [place] requesting lab orders Immunology - [address] be mailed to:; [facility], [facility] Felix, [address], [address] [facility], [address] [place] [address]. [place] [address] [place] Wants to have done [phone] at [facility] along with [phone] (Wo rk) CT Scan, prefers 01/02 in [...] Primary documented in this encounter Care Teams Planning Consultant Relationship Specialty Start Date End Date Matty Richardson MD PCP - General 11/17/10 10/03/18 [address] [place] [address] documented as of this encounter
--- OUTSIDE RECORDS SUMMARY | 2021-07-15 14:48 | XMS_ITS | Clinical Summary ---
:1955 Author Organization [facility] Address [address] [place] [address] Care Team Providers Name Role Phone Diego Richardson MD Primary Care Provider Allergies No known active allergies Medications Medication Sig Dispensed Refills Start Date End Date Status FLUoxetine (PROZAC) 40 mg capsule 0 2020 Active NAC 600 mg tablet 0 01/23/2021 A ctive Active Problems Patient Care Coordination Note Formatting of this note might be differe nt from the original. [facility] Neuropsychology Program ASHLYN piercene d to [...] / Group Dates MEDICAID ACO MEDICAID ACO [id number] 2021-Pres [phone] [address] Medicaid [place] ent [address] [place] [address] Naty Srivastava Personal/Family Self 1955 [address] (Home) [place] [address] Naty Srivastava Personal/Family Self 1955 [address]Home) [place] [address] Naty Srivastava Personal/Family Self 1955 [address]Home) [place] [address] Naty Srivastava Personal/Family Self 1955 [address]Home) [place] [address] Naty Srivastava Personal/Family Self 1955 [address]Home) [place] [address] Naty Srivastava Personal/Family Self 1955 [address]Home) [place] [address] Naty Srivastava Personal/Family Self 1955 [address] (Home) [place] [address] Care Teams Marketer Relationship Specialty Start Date End Date Matty Richardson MD PCP - General 02/16/19 [address] [place] [address]
--- OUTSIDE RECORDS SUMMARY | 2021-07-15 14:48 | XMS_ITS | Encounter Summary ---
:1955 Author Organization [facility] Address [address] [place] [address] Care Team Providers Name Role Phone Diego Richardson MD Primary Care Provider Reason for Referral Radiology Services (Routine) - Closed Specialty Diagnoses / Procedures Referred By Contact Refer red To Contact Diagnoses Arthralgia Cough Watson Silva Chi, MD Procedures CT CHEST [address] [place] [phone] Referral ID Status Reason Start Date Expiration Date Visits Requ ested Visits Authorized [id number] Closed 12/23/2010 1 1 Reason for Visit Reason Onset Date Comments Results 12/16/2010 [facility] RESULTS Encounter Details Date Type Department Care Team Description 12/16/2010 Telephone [facility] Watson Silva Chi, MD Results ([facility] Rheumatology & [address] [place] [address] RESULTS) Immunology - [address] [phone] (Wo rk) Social History Tobacco Use [...] and will set up Chest CT at [facility]- elephone Encounter - Watson Silva Chi, MD - 12/17/2010 1903 EDT Spoke to pt about lab results: 1. Elevated Lfts- could be related to herbal meds. Pt will stop the herbs, and have repeat LFTs with hepatitis panel in several weeks. External lab request to be sent to pt at following address: Ty Washington [address], [place] [address] 2. Elevated JAMAL - screening test for sarcoid. CXR is normal; will check Chest CT which can be doneat [facility] to rule out hilar adenopathy. 3. Low + TYLER and thyroid antibodies of unclear significance- low grade thyroiditis? Pt's alternate # other than cell # after today: [phone] signed by Watson Silva Chi, MD at 12/17/2010 19:03 EDT documented in this encounter Plan of Treatment Scheduled Orders Name Type Priority Associated Diagnoses Order S chedule CT CHEST Imaging Routine Arthralgia 12/17/2010 Cough documented as of this encounter Visit Diagnoses Diagnosis Elevated LFT's Other abnormal blood chemistry Arthralgia Pain in joint, site unspecified Cough documented in this encounter Care Teams Ball Fringe Machine Operator Relationship Specialty Start Date End Date Matty Richardson MD PCP - General 11/17/10 10/03/18 [address] [place] [address] documented as of this encounter
--- OUTSIDE RECORDS SUMMARY | 2021-07-15 14:48 | XMS_ITS | Encounter Summary ---
:1955 Author Organization Address [address] [place] [address] Care Team Providers Name Role Phone Diego Richardson MD Primary Care Provider Reason for Referral Consult (See Order Priority) - Authorization Not Required Specialty Diagnoses / Procedures Referred By Contact Refer red To Contact Clinical Laboratory Diagnoses H/O multiple concussions ADHD, adult residual type Ria Pena MD Non [facility] [address] [facility] [address] [place] [address] Referral ID Status Reason Start Expiration Visits Visits Date Date Requested Authorized [id number] Authorization Specialty 03/24/20 1 1 Not Required Services 21 Required Question Answer Reason for Request: ATTENTION [facility] NEUROPSYCHOL OGY DR. HASSAN DRUDGE: Reassessment requested for repeated concu ssions; also question of attention deficit disorder Reason for Visit Reason Comments New Patient Visit Encounter Details Date Type Department Care Team Description 03/24/2021 Office Visit [facility] - Ria Pena, H/ O multiple concussions (Primary Dx); [facility] ADHD, adult residual type [address] [place] [address] [address] [place] [phone] Social History Tobacco Use Types Packs/Day Years [...] EST I will send another referral to [facility] Neuropsychology for retesting with focus of [...] was evaluated by Dr. Juan Manuel Martins, [facility] in July 2018. Referred for neuropsychological evaluation which was done by Dr. Bola Thorne in January 2019: The current evaluation finds Ms. Srivastava to be functioning in the average range intellectually and thelow average to high average ranges across a majority of the other tested neuropsychological domains.Areas of relative strength identified upon testing include basic photoengraving finisher strength, visuomotor processing speed, spatial organization, and [...] lose consciousness. Seen the next day at [facility] with symptoms of headache, nausea, fatigue, dizziness, [...] in cold water (40 degrees in [place]), EMDR with her therapist, are all helpful [...] Pertinent labs and neuroimaging: MRI 2018 at [facility]: normal 14-point Review of Systems reviewed with [...] her multiple concussions. We discusseda referral to CASTING WHEEL OPERATOR for cognitive remediation, although it is not [...] present I have sent another referral to [facility] Neuropsychology to repeat cognitive testing with emphasis on attention. I will follow-up with her after testing to review results and discuss next steps. Patient Instructions I will send another referral to [facility] Neuropsychology for retesting with focus of [...] DAILY added in this encounter Care Teams Street Inspector Relationship Specialty Start Date End Date Matty Richardson MD PCP - General 02/16/19 [address] [place] [address] documented as of this encounter
--- OUTSIDE RECORDS SUMMARY | 2021-07-15 14:48 | XMS_ITS | Encounter Summary ---
:1955 Author Organization [facility] Address [address] [place] [address] Care Team Providers Name Role Phone Diego Richardson MD Primary Care Provider Encounter Details Date Type Department Care Team Description 12/21/2014 Results Only [facility] [place], DIRECTOR EMBALMER PRISM [address] [phone] [place] [phone] (Wo rk) Social History Tobacco Use Types [...] (12/21/2014 0:00 EDT) Pathology Report: CYTOPATHOLOGY REPORT [facility] Reports generated via electronic interface contain susannah ginal data; SERVICES however they are lacking the format of the original re port. Caution should be taken when reading/interpreting unfo rmatted reports. Name: ? NATY SRIVASTAVA ? Accession #: ? [id number] ? : ? 1955 (Age: 59 ) ??F ?Collect Date: ? 12/21/2014 ? Location: ? [facility] ? Receive Date: ? 12/25/19 15 ? Provider: SAMUEL BOOGIE DIRECTOR EMBALMER Copy to: ? Final Report SPECIMEN ADEQUACY [...] types 16,18,31,3 3,35, 39,45,51,52,56,58,59,66, and 68 by eyeglass cutter media shahab amplification. Comments Document reviewed and electronically signed by: ? System Interface ? Report date: 12/28/2014 By the signature above, the attending physician certif ies that he/she has personally conducted a gross and/or microscopic examin ation of the described specimens and rendered or confirmed the above diagnosi s. End of Report Specimen Performing Organization Address City/State/ZIP Code Phon e Number [facility] [address] [place] [address] SERVICES documented in this encounter Visit Diagnoses Not on filedocumented in this encounter Care Teams Area Manager Relationship Specialty Start Date End Date Matty Richardson MD PCP - General 11/17/10 10/03/18 [address] [place] [address] documented as of this encounter
--- OUTSIDE RECORDS SUMMARY | 2021-07-15 14:49 | XMS_ITS | Encounter Summary ---
:1955 Author Organization [facility] Address [address] [place] [address] Care Team Providers Name Role Phone Unavailable Primary Care Provider Unavailable Encounter Details Date Type Department Care Team Description 10/20/2000 Hospital Encounter [facility] - Daniela Chavez MD [address] [place], [place] [address] Other Unknown, Provider, [address] [place], [place] [address] Social History Tobacco Use Types Packs/Day Years [...] NATY SRIVASTAVA ? Accession #: ? [id number] : ? 1955 (Age: 45) ??F ?Collect [...] Organization Address City/State/ZIP Code Phon e Number [facility] [address] [place] [address] SERVICES [facility] [address] [place] [address] documented in this encounter Visit Diagnoses Not on filedocumented in this encounter
--- OUTSIDE RECORDS SUMMARY | 2021-07-15 14:49 | XMS_ITS | Encounter Summary ---
:1955 Author Organization [facility] Address [address] [place] [address] Care Team Providers Name Role Phone Unavailable Primary Care Provider Unavailable Encounter Details Date Type Department Care Team Description 08/10/2005 Hospital Encounter [facility] - Josafat Duran, Other ACCESS SPECIALIST [address] [facility] [address] [place] [address] [place] [address] Social History Tobacco Use Types Packs/Day Years [...]
--- OUTSIDE RECORDS SUMMARY | 2021-07-15 14:49 | XMS_ITS | Encounter Summary ---
:1955 Author Organization [facility] Address [address] [place] [address] Care Team Providers Name Role Phone Unavailable Primary Care Provider Unavailable Encounter Details Date Type Department Care Team Description 08/13/2006 Hospital Encounter [facility] - Matty Richardson MD [address] [place] [phone] Other Katarina Rainey, DANIA [address] [phone] [address] [place], [place] [id number] Social History Tobacco Use Types Packs/Day Years [...] EN ? LAB Reports generated via electr Nogacom interface contain original data; ? however they are lacking the format of the original report. ? Caution should be taken when reading/interpreting unformatted reports. ? Name: ? NATY SRIVASTAVA ? Accession #: ? [id number] ? : ? 1955 (Age: 53) ??F [...] of Report ? Specimen Performing Organization Address City/[facility] Phon e Number [facility] [address] [place] [address] SERVICES [facility] [address] [place] [address] ANTI THYROGLOBULIN (12/05/2007 17:05 EDT) Pathologist Sig nature Thyroglobulin Ab <20 0 - 40 IU/mL [facility] Specimen Performing Organization Address City/State/ZIP Code Phon e Number [facility] [address] [place] [address] SERVICES [facility] [address] [place] [address] THYROPEROXIDASE ANTIBODY (12/05/2007 17:05 EDT) Pathologist Sig nature Thyroid Peroxidase Ab <10 <35 IU/mL [facility] Specimen Performing Organization Address City/[facility] Phon e Number [facility] [address] [place] [address] SERVICES [facility] [address] [place] [address] ANTI DNA (DOUBLE STRAND) (12/05/2007 17:05 EDT) Pathologist Sig nature Anti DNA (DS) Neg NEG Dils [facility] Specimen Performing Organization Address City/State/ZIP Code Phon e Number [facility] [address] [place] [address] SERVICES [facility] [address] [place] [address] HLA B27 (12/05/2007 17:05 EDT) Pathologist Sig nature HLA B27 HLA B27 not identified [facility] Specimen Performing Organization Address [facility] Code Phon e Number [facility] [address] [place] [address] SERVICES [facility] [address] [place] [address] documented in this encounter Visit Diagnoses Not on filedocumented in this encounter
--- OUTSIDE RECORDS SUMMARY | 2021-07-15 14:49 | XMS_ITS | Encounter Summary ---
:1955 Author Organization [facility] Address [address] [place] [address] Care Team Providers Name Role Phone Unknown, Primary Care Provider Diego Richardson MD Primary Care Provider Reason for Visit Reason Onset Date Comments Appointment Related 11/07/2010 Patient's PCP's offi ce would like patient seen sooner than her 02/19 [facility] appt. Appointment Related 11/07/2010 Patient checking on status of getting an earlier appointment. Encounter Details Date Type Department Care Team Description 11/07/2010 Telephone [facility] Jesus Alberto Sutton MD Appointment Related Rheumatology & [address] [place] [address] (Patient's PCP's Immunology - [facility] office would like [facility] patient seen sooner [address] [facility], Level 5 than her 02/19 [place] [address] [place] appt.); Appointment [phone] Related (Patient [phone] (Wo rk) checking on status of getting a n earlier appointment.) Social History Tobacco Use Types Packs/Day Years Used Date Never Assessed Sex Assigned at Date Recorded Not on file documented as of this encounter Miscellaneous Notes Telephone Encounter - Martha Dockery, RN - 11/10/2010 1001 EDT Two attempts to reach patient ;message left on her ans machine; we have added Naty to our wait listfor sooner appt. documented in this encounter Plan of Treatment Not on filedocumented as of this encounter Visit Diagnoses Not on filedocumented in this encounter Care Teams Factorer Relationship Specialty Start Date End Date Unknown, Provider, PCP - General 12/18/08 11/16/10 Matty Richardson MD PCP - General 11/17/10 10/03/18 [address] [place] [address] documented as of this encounter
--- OUTSIDE RECORDS SUMMARY | 2021-07-15 14:49 | XMS_ITS | Encounter Summary ---
:1955 Author Organization [facility] Address [address] [place] [address] Care Team Providers Name Role Phone Unknown, Primary Care Provider Encounter Details Date Type Department Care Team Description 05/18/2002 Results Only [facility] - Beatriz Alfaro MD [facility] [address] [place], [place] [phone] [place] [address] [phone] Social History Tobacco Use Types Packs/Day Years [...] Organization Address City/State/ZIP Code Phon e Number [facility] [address] [place] [address] SERVICES [facility] [address] [place] [address] documented in this encounter Visit Diagnoses Not on filedocumented in this encounter Care Teams Operations Plant Attendant Relationship Specialty Start Date End Date Unknown, Provider, PCP - General 12/18/08 11/16/10 documented as of this encounter
--- OUTSIDE RECORDS SUMMARY | 2021-07-15 14:49 | XMS_ITS | Encounter Summary ---
:1955 Author Organization [facility] Address [address] [place] [address] Care Team Providers Name Role Phone Mikhail, Primary Care Provider Diego Richardson MD Primary Care Provider MD Eliezer Primary Care Provider Diego Richardson MD Primary Care Provider Encounter Details Date Type Department Care Team Description 11/07/2002 Hospital Encounter [facility] - Josafat Duran, Other COMPOSITE ENGINEER [address] [place], [place] [phone] [place] [address] Social History Tobacco Use Types Packs/Day Years [...] NATY SRIVASTAVA ? Accession #: ? [id number] : ? 1955 (Age: 47) ??F ?Collect Date: ? 10/24 Location: ? [facility] ? Receive Date : ? 11/09/2002 Provider: ?TY DURAN MARKET INVESTIGATOR Copy to: ? Specimen/Source: ?ThinPrep Pap Test, Cervix/ Endocervix Last Menstrual Period: ? 10/24/02 ? SPECIMEN ADEQUACY ? Satisfactory for Evaluation - transformation zone component present GENERAL CATEGORIZATION ? Negative for Intraepithelial Lesion or Malignan cy ? Document reviewed and electronically signed by: ? CLAYTON Barrios(ASCP) ? Report Date: ??11/13/2002 10:45 End of Report Specimen Performing Organization Address City/State/ZIP Code Phon e Number [facility] [address] [place] [address] SERVICES [facility] [address] [place] [address] documented in this encounter Visit Diagnoses Not on filedocumented in this encounter Care Teams Commercial Art Instructor Relationship Specialty Start Date End Date Unknown, MD Thuy PCP - General 12/18/08 11/16/10 Matty Richardson MD PCP - General 11/17/10 10/03/18 [address] [place] [address] Roque Martins MD PCP - General 10/04/18 02/15/19 [address] [place] [address] Matty Richardson MD PCP - General 02/16/19 [address] [place] [address] documented as of this encounter
--- OUTSIDE RECORDS SUMMARY | 2021-07-15 14:49 | XMS_ITS | Encounter Summary ---
:1955 Author Organization [facility] Address [address] [place] [address] Care Team Providers Name Role Phone Unknown, Primary Care Provider Encounter Details Date Type Department Care Team Description 08/13/2006 Results Only [facility] - Katarina Kline, E MAIL SYSTEM ADMINISTRATOR conversion [address] [facility] [address] [place], [place] [phone] [place] [phone] Social History Tobacco Use Types Packs/Day Years [...] NATY SRIVASTAVA ? Accession #: ? [id number] : ? 1955 (Age: 50) ??F ?Collect Date: ? 07/26 Location: ? [facility] ? Receive Date : ? 08/16/2006 Provider: ?KATARINA ALFARO E MAIL SYSTEM ADMINISTRATOR Copy to: ? Specimen/Source: ?ThinPrep Pap Test, E ndocervix, processed on [employer] ThinPrep Imaging System, with manual evaluation Last [...] Organization Address City/State/ZIP Code Phon e Number [facility] [address] [place] [address] SERVICES [facility] [address] [place] [address] documented in this encounter Visit Diagnoses Not on filedocumented in this encounter Care Teams Coffee Supervisor Relationship Specialty Start Date End Date Unknown, Provider, PCP - General 12/18/08 11/16/10 documented as of this encounter
--- OUTSIDE RECORDS SUMMARY | 2021-07-15 14:49 | XMS_ITS | Encounter Summary ---
:1955 Author Organization [facility] Address [address] [place] [address] Care Team Providers Name Role Phone Unavailable Primary Care Provider Unavailable Encounter Details Date Type Department Care Team Description 12/12/2008 Hospital Encounter [facility] - Lata [place] MD [address] [address] [address] [place] [phone] (Wo rk) Social History Tobacco Use Types [...]
--- OUTSIDE RECORDS SUMMARY | 2021-07-15 14:49 | XMS_ITS | Encounter Summary ---
:1955 Author Organization [facility] Address [address] [place] [address] Care Team Providers Name Role Phone Unknown, Primary Care Provider Diego Richardson MD Primary Care Provider MD Eliezer Primary Care Provider Diego Richardson MD Primary Care Provider Encounter Details Date Type Department Care Team Description 10/21/1999 Hospital Encounter [facility] - Daniela Chavez MD [address] [place], [place] [phone] Other Unknown, Provider, [address] [place], [place] [phone] Social History Tobacco Use Types Packs/Day Years [...] NATY SRIVASTAVA ? Accession #: ? [id number] : ? 1955 (Age: 44) ??F ?Collect [...] Number [facility] [address] [place] [address] SERVICES [facility] [address] [place] [address] documented in this encounter Visit Diagnoses Not on filedocumented in this encounter Care Teams Spa Therapist Relationship Specialty Start Date End Date Unknown, Provider, PCP - General 12/18/08 11/16/10 Matty Richardson MD PCP - General 11/17/10 10/03/18 [address] [place] [address] Roque Martins MD PCP - General 10/04/18 02/15/19 [address] [place] [address] Matty Richardson MD PCP - General 02/16/19 [address] [place] [phone] documented as of this encounter
--- OUTSIDE RECORDS SUMMARY | 2021-07-15 14:49 | XMS_ITS | Encounter Summary ---
:1955 Author Organization [facility] Address [address] [place] [address] Care Team Providers Name Role Phone Diego Richardson MD Primary Care Provider Encounter Details Date Type Department Care Team Description 12/10/2010 Phlebotomy Only [facility] Hoop Expander, Galindo briceño; - [facility] Outpatient Positive TYLER (antinuclear an tibody); [address] [place] [address] Social History Tobacco Use Types Packs/Day Years [...] procedure are i n the results section. LICENSED LOAN OFFICER ANTIBODIES BY GILDA Routine 12/10/2010 15:00 Positive [...] Specimen Blood specimen (specimen) Performing Organization Address [facility] Phon e Number [facility] [address] [place] [address] SERVICES [facility] [address] [place] [address] ANTI THYROGLOBULIN (12/10/2010 15:00 EDT) Pathologist Sig nature Thyroglobulin Ab 37 <61 U/mL [facility] Specimen Blood specimen (specimen) Performing Organization Address [facility] Phon e Number [facility] [address] [place] [address] SERVICES [facility] [address] [place] [address] VITAMIN D (25,OH) (12/10/2010 15:00 EDT) 25OH Vitamin D Tot 26.5 ng/ml [facility] Comment: LAB Reference Range: <10 ng/ml: Deficient 10-30 ng/m l: Insufficient 30-100 ng/ml: Sufficient >100 ng/ml: Toxic Specimen Blood specimen (specimen) Performing Organization Address [facility] Phon e Number [facility] [address] [place] [address] SERVICES [facility] [address] [place] [address] TSH (12/10/2010 15:00 EDT) Pathologist Sig nature TSH 2.76 0.35 - 5.00 uIU/ml [facility] Specimen Blood specimen (specimen) Performing Organization Address [facility] Phon e Number [facility] [address] [place] [address] SERVICES [facility] [address] [place] [address] ANTI DNA (DOUBLE STRAND) (12/10/2010 15:00 EDT) Anti DNA (DS) <25 <25 IU [facility] Comment: Results Interpretation IU's ?Interpretation <25 ?Negative 25 TO <30 ?Weakly Positive 30 TO <60 ?Low Positive 60 TO <200 ? Positive >200 ? Strong Positive Specimen Blood specimen (specimen) Performing Organization Address [facility] Phon e Number [facility] [address] [place] [address] SERVICES [facility] [address] [place] [address] SS-B/LA ANTIBODY, IGG, SERUM (12/10/2010 15:00 EDT) SS B/La Ab, IgG, S <0.2Reference range: <1.0 (Negative) [facility] Unit: U LAB Performed by: [facility] and, [address] [facility], ?? [place] [address], Horse Racer: Paradise Medley, Ph.D. Specimen Blood specimen (specimen) Performing Organization Address [facility]/ZIP Code Phon e Number [facility] [address] [place] [address] SERVICES [facility] [address] [place] [address] SS-A/RO ANTIBODY, IGG, SERUM (12/10/2010 15:00 EDT) SS A/Ro Ab, IgG, S <0.2Reference range: <1.0 (Negative) [facility] Unit: U LAB Performed by: [facility] [place] and, [address], ?? [place] [address], Horse Racer: Paradise Medley, Ph.D. Specimen Blood specimen (specimen) Performing Organization Address [facility]/ZIP Code Phon e Number [facility] [address] [place] [address] SERVICES [facility] [address] [place] [address] SM ANTIBODIES, IGG, SERUM (12/10/2010 15:00 EDT) Sm Ab, IgG, S <0.2Reference range: <1.0 (Negative) [facility] Unit: U Performed by: [facility] [place] and, [address] [facility] [place] ?? [place] [address], Horse Racer: Paradise Medley, Ph.D. Specimen Performing Organization Address [facility]/ZIP Code Phon e Number [facility] [address] [place] [address] SERVICES [facility] [address] [place] [address] LICENSED LOAN OFFICER ANTIBODY, IGG, SERUM (12/10/2010 15:00 EDT) Pathologist [facility] LICENSED LOAN OFFICER Ab, IgG, S <0.2Reference range: <1.0 (Negative) [place] [facility] Unit: U Performed by: [facility] and, [address], [place], ?? [place] [address], Horse Racer: Paradise Medley, Ph.D. Specimen Blood specimen (specimen) Performing Organization Address [facility] Phon e Number [facility] [address] [place] [address] SERVICES [facility] [address] [place] [address] PARVOVIRUS ANTIBODY (12/10/2010 15:00 EDT) [facility] Parvovirus B19 Ab, 1.26Reference range: <0.90 [facility] IgG, S Unit: index LAB Positive (>1.10) ? Parvovirus B19 Ab, 0.08Reference range: <0.90 [facility] IgM, S Unit: index LAB Parvovirus [facility] Interpretation Results suggest past infecti on. ? LAB Performed by: [facility] [place], [address], ? [place] [address], Lab Dire ctor: Paradise Medley, Ph.D. ? Specimen Blood specimen (specimen) Performing Organization Address [facility] Phon e Number [facility] [address] [place] [address] SERVICES [facility] [address] [place] [address] SED. RATE:WESTERGREN (12/10/2010 15:00 EDT) Pathologist Sig nature Sed. Rate Westergren 19 0 - 30 mm/hr [facility] Specimen Blood specimen (specimen) Performing Organization Address [facility] Code Phon e Number [facility] [address] [place] [address] SERVICES [facility] [address] [place] [address] C-REACTIVE PROTEIN (12/10/2010 15:00 EDT) Pathologist Sig nature C-Reactive Protein <0.7 <1.0 mg/dl [facility] Specimen Blood specimen (specimen) Performing Organization Address [facility] Phon e Number [facility] [address] [place] [address] SERVICES [facility] [address] [place] [address] (ABNORMAL) COMPREHENSIVE METABOLIC PANEL (CMP) (12/10/2010 15:00 [...] Specimen Blood specimen (specimen) Performing Organization Address [facility]/ZIP Code Phon e Number [facility] [address] [place] [address] [facility] [address] [place] [address] CK (12/10/2010 15:00 EDT) Pathologist Sig nature CK 70 30 - 135 U/L [facility] Specimen Blood specimen (specimen) Performing Organization Address [facility]/ZIP Code Phon e Number [facility] [address] [place] [address] [facility] [address] [place] [address] CCP ANTIBODIES (12/10/2010 15:00 EDT) Pathologist Sig nature CCP Antibodies 0.25 <5.01 U/ml [facility] Specimen Performing Organization Address [facility]/ZIP Code Phon e Number [facility] [address] [place] [address] [facility] [address] [place] [address] C4 COMPLEMENT (12/10/2010 15:00 EDT) Pathologist Sig nature C4 Complement 26 16 - 38 mg/dl [facility] Specimen Blood specimen (specimen) Performing Organization Address [facility]/ZIP Code Phon e Number [facility] [address] [place] [address] [facility] [address] [place] [address] ARTHRITIS 1 (12/10/2010 15:00 EDT) Anti Nuclear Ab Positive at 40 0 - 40 Dils [facility] dils, titer to follow. Rheumatoid Factor <20 <20 IU/ml [facility] Specimen Blood specimen (specimen) Performing Organization Address [facility]/ZIP Code Phon e Number [facility] [address] [place] [address] [facility] [address] [place] [address] ANTI STREPTOLYSIN O (12/10/2010 15:00 EDT) Pathologist Sig nature Anti Strep O Screen <200 <200 IU/mL [facility] Specimen Blood specimen (specimen) Performing Organization Address [facility]/ZIP Code Phon e Number [facility] [address] [place] [address] SERVICES [facility] [address] [place] [address] (ABNORMAL) ANGIOTENSIN CONVERTING ENZYME (JAMAL) (12/10/2010 15:00 EDT) Angiotensin 90Reference range: 8 to 53 [facility] Converting Enzyme Unit: U/L LAB The use of angiotensin conve rting enzyme (JAMAL)-inhibiting ? antihypertensive drugs will cause decreased JAMAL values. ? Performed or Referred by: [facility] Dpt of Lab Med and Path, [address] ? [place] [address], Lab Dir: All Riggins III, ? MD ? (H) Specimen Blood specimen (specimen) Performing Organization Address [facility] Phon e Number [facility] [address] [place] [address] SERVICES [facility] [address] [place] [address] ANCA (12/10/2010 15:00 EDT) Pathologist Sig nature ANCA Neg NEG Dils [facility] Specimen Blood specimen (specimen) Performing Organization Address [facility] Phon e Number [facility] [address] [place] [address] [facility] [address] [place] [address] documented in this encounter Visit Diagnoses Diagnosis Arthralgia Pain in joint, site unspecified Positive TYLER (antinuclear antibody) Other and unspecified nonspecific immuno logical findings Fatigue Other malaise and fatigue documented in this encounter Care Teams Motor And Chassis Inspector Relationship Specialty Start Date End Date Matty Richardson MD PCP - General 11/17/10 10/03/18 [address] [place] [address] documented as of this encounter
--- OUTSIDE RECORDS SUMMARY | 2021-07-15 14:49 | XMS_ITS | Encounter Summary ---
:1955 Author Organization [facility] Address [address] [place] [address] Care Team Providers Name Role Phone Diego Richardson MD Primary Care Provider Reason for Visit Reason Comments Joint Pain hands and feet New Patient Visit Pt is being seen at the requ est of Dr Matty Richardson for evaluation of diffuse jt pains, +TYLER. Encounter Details Date Type Department Care Team Description 12/10/2010 Office Visit [facility] Watson Silva Chi, MD Arthralgia; Rheumatology & [address] [place] [address] Positive AN A (antinuclear antibody); Immunology - [facility] Osteoarthritis; [facility]; [address] [place] [address], Level [address] Cough [place], [place] [id number] [place] [phone] (Wo rk) Social History Tobacco Use Types [...] disease x 3 (since she is from [facility]) and all tests were neg. Feet and hands have been painfu; hands tingle at night. 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 Gets h/a's. Had [...] Reviewed [address] Hillary Rivas (suggestion clerk with [facility]): Antibodies for dsDNA, thyroiditis, celiac all negative. Tyler was 1:320. [facility] Labs 10/15/10: CBC normal; ESR 14 TYLER [...] Protein; Future - Sed. Rate:Westergren; Future - ROTARY SHEAR WORKER HELPER Antibody, IgG, Serum; Future - Sm Antibodies, [...] Specimen Blood specimen (specimen) Performing Organization Address [facility] Phon e Number [facility] [address] [place] [address] SERVICES [facility] [address] [place] [address] ANTI THYROGLOBULIN (12/10/2010 15:00 EDT) Pathologist Sig nature Thyroglobulin Ab 37 <61 U/mL [facility] Specimen Blood specimen (specimen) Performing Organization Address [facility] Phon e Number [facility] [address] [place] [address] SERVICES [facility] [address] [place] [address] VITAMIN D (25,OH) (12/10/2010 15:00 EDT) 25OH Vitamin D Tot 26.5 ng/ml [facility] Comment: LAB Reference Range: <10 ng/ml: Deficient 10-30 ng/m l: Insufficient 30-100 ng/ml: Sufficient >100 ng/ml: Toxic Specimen Blood specimen (specimen) Performing Organization Address [facility] Phon e Number [facility] [address] [place] [address] SERVICES [facility] [address] [place] [address] TSH (12/10/2010 15:00 EDT) Pathologist Sig nature TSH 2.76 0.35 - 5.00 uIU/ml [facility] Specimen Blood specimen (specimen) Performing Organization Address [facility] Phon e Number [facility] [address] [place] [address] SERVICES [facility] [address] [place] [address] ANTI DNA (DOUBLE STRAND) (12/10/2010 15:00 EDT) Anti DNA (DS) <25 <25 IU [facility] Comment: Results Interpretation IU's ?Interpretation <25 ?Negative 25 TO <30 ?Weakly Positive 30 TO <60 ?Low Positive 60 TO <200 ? Positive >200 ? Strong Positive Specimen Blood specimen (specimen) Performing Organization Address City/[facility]/ZIP Code Phon e Number [facility] [address] [place] [address] SERVICES [facility] [address] [place] [address] SS-B/LA ANTIBODY, IGG, SERUM (12/10/2010 15:00 EDT) SS B/La Ab, IgG, S <0.2Reference range: <1.0 (Negative) [facility] Unit: U LAB Performed by: [facility] [place] and, [address] [facility], ?? [place] [address], Engineer Station Mainline: Paradise Medley, Ph.D. Specimen Blood specimen (specimen) Performing Organization Address City/[facility] Phon e Number [facility] [address] [place] [address] SERVICES [facility] [address] [place] [address] SS-A/RO ANTIBODY, IGG, SERUM (12/10/2010 15:00 EDT) SS A/Ro Ab, IgG, S <0.2Reference range: <1.0 (Negative) [facility] Unit: U LAB Performed by: [facility] [place] and, [address], ?? [place] [address], Engineer Station Mainline: Paradise Medley, Ph.D. Specimen Blood specimen (specimen) Performing Organization Address City/[facility]/ZIP Code Phon e Number [facility] [address] [place] [address] SERVICES [facility] [address] [place] [address] SM ANTIBODIES, IGG, SERUM (12/10/2010 15:00 EDT) Sm Ab, IgG, S <0.2Reference range: <1.0 (Negative) V[facility] Unit: U Performed by: [facility] [place] and, [address] [facility], ?? [place] [address], Engineer Station Mainline: Paradise Medley, Ph.D. Specimen Performing Organization Address City/[facility]/ZIP [facility] Phon e Number [facility] [address] [place] [address] SERVICES [facility] [address] [place] [address] ROTARY SHEAR WORKER HELPER ANTIBODY, IGG, SERUM (12/10/2010 15:00 EDT) Pathologist [facility] ROTARY SHEAR WORKER HELPER Ab, IgG, S <0.2Reference range: <1.0 (Negative) [place] J[facility]ON [facility] Unit: U Performed by: [facility] and, [address], [place], ?? [place] [address], Engineer Station Mainline: Paradise Medley, Ph.D. Specimen Blood specimen (specimen) Performing Organization Address [facility] Phon e Number [facility] [address] [place] [address] SERVICES [facility] [address] [place] [address] PARVOVIRUS ANTIBODY (12/10/2010 15:00 EDT) Pathologist [facility] Parvovirus B19 Ab, 1.26Reference range: <0.90 [facility] IgG, S Unit: index LAB Positive (>1.10) ? Parvovirus B19 Ab, 0.08Reference range: <0.90 [facility] IgM, S Unit: index LAB Parvovirus [facility] Interpretation Results suggest past infecti on. ? LAB Performed by: [facility] [place], [address], ? [place] [address], Lab Dire ctor: Paradise Medley, Ph.D. ? Specimen Blood specimen (specimen) Performing Organization Address [facility] Phon e Number [facility] [address] [place] [address] SERVICES [facility] [address] [place] [address] SED. RATE:WESTERGREN (12/10/2010 15:00 EDT) Pathologist Sig nature Sed. Rate Westergren 19 0 - 30 mm/hr [facility] Specimen Blood specimen (specimen) Performing Organization Address City/[facility]/ZIP Code Phon e Number [facility] [address] [place] [address] SERVICES [facility] [address] [place] [address] C-REACTIVE PROTEIN (12/10/2010 15:00 EDT) Pathologist Sig [facility] C-Reactive Protein <0.7 <1.0 mg/dl [facility] Specimen Blood specimen (specimen) Performing Organization Address City/[facility]/ZIP Code Phon e Number [facility] [address] [place] [address] SERVICES [facility] [address] [place] [address] (ABNORMAL) COMPREHENSIVE METABOLIC PANEL (CMP) (12/10/2010 15:00 [...] Organization Address City/State/ZIP Code Phon e Number [facility] [address] [place] [address] SERVICES [facility] [address] [place] [address] CK (12/10/2010 15:00 EDT) Pathologist Sig nature CK 70 30 - 135 U/L [facility] Specimen Blood specimen (specimen) Performing Organization Address City/[facility]/ZIP Code Phon e Number [facility] [address] [place] [address] SERVICES [facility] [address] [place] [address] CCP ANTIBODIES (12/10/2010 15:00 EDT) Pathologist Sig nature CCP Antibodies 0.25 <5.01 U/ml [facility] Specimen Performing Organization Address City/[facility]/ZIP [facility] Phon e Number [facility] [address] [place] [address] SERVICES [facility] [address] [place] [address] C4 COMPLEMENT (12/10/2010 15:00 EDT) Pathologist Sig nature C4 Complement 26 16 - 38 mg/dl [facility] Specimen Blood specimen (specimen) Performing Organization Address [facility] Phon e Number [facility] [address] [place] [address] SERVICES [facility] [address] [place] [address] ARTHRITIS 1 (12/10/2010 15:00 EDT) Anti Nuclear Ab Positive at 40 0 - 40 Dils [facility] dils, titer to follow. Rheumatoid Factor <20 <20 IU/ml [facility] Specimen Blood specimen (specimen) Performing Organization Address City/[facility]/ZIP [facility] Phon e Number [facility] [address] [place] [address] SERVICES [facility] [address] [place] [address] ANTI STREPTOLYSIN O (12/10/2010 15:00 EDT) Pathologist Sig nature Anti Strep O Screen <200 <200 IU/mL [facility] Specimen Blood specimen (specimen) Performing Organization Address City/[facility]/ZIP Code Phon e Number [facility] [address] [place] [address] SERVICES [facility] [address] [place] [address] (ABNORMAL) ANGIOTENSIN CONVERTING ENZYME (JAMAL) (12/10/2010 15:00 EDT) Angiotensin 90Reference range: 8 to 53 [facility] Converting Enzyme Unit: U/L LAB The use of angiotensin conve rting enzyme (JAMAL)-inhibiting ? antihypertensive drugs will cause decreased JAMAL values. ? Performed or Referred by: [facility] Dpt of Lab Med and Path, [address] ? [place] [address], Lab Dir: All Riggins III, ? MD ? (H) Specimen Blood specimen (specimen) Performing Organization Address City/[facility]/ZIP Code Phon e Number [facility] [address] [place] [address] SERVICES [facility] [address] [place] [address] ANCA (12/10/2010 15:00 EDT) Pathologist Sig nature ANCA Neg NEG Dils [facility] Specimen Blood specimen (specimen) Performing Organization Address City/State/ZIP Code Phon e Number [facility] [address] [place] [address] SERVICES [facility] [address] [place] [address] CHEST PA AND LATERAL (12/10/2010 14:28 EDT) Anatomical Region Laterality Modality Other Specimen Narrative [facility] - 12/10/2010 16:39 EDT CHEST PA AND LAT ??Dec 10, 2010 02:28:00 PM Signs and Symptoms/Comments: ?? 780.79-F [id number]-[id number] 719.97-[id number] recurrent cough for 3 mos Impression: 1. Negative chest. Description: Dual energy chest without c omparisons. The heart is normal and the lungs are clear. Procedure Note 12/10/2010 CHEST PA AND LAT Dec 10, 2010 02:28:00 PM Signs and Symptoms/Comments: 780.79-FA TIGUE-I9 719.18-[id number] recurrent cough for 3 mos Impression: 1. Negative chest. Description: Dual energy chest without c omparisons. The heart is normal and the lungs are clear. Performing Organization Address City/State/ZIP Code Phon e Number [facility] documented in this encounter Visit Diagnoses Diagnosis Arthralgia Pain in joint, site unspecified Positive TYLER (antinuclear antibody) Other and unspecified nonspecific immuno logical findings Osteoarthritis Osteoarthrosis, unspecified whether gene ralized or localized, unspecified site Fatigue Other malaise and fatigue Cough documented in this encounter Care Teams Stone Hand Relationship Specialty Start Date End Date Matty Richardson MD PCP - General 11/17/10 10/03/18 [address] [place] [address] documented as of this encounter
[2021-07-16 12:31] LABS: IgA 327 mg/dL (85-499); Interpretation (See Note); Tissue Transglutaminase IgA <1.2 U/mL (<4.0)
== END 2021-07-15 14:47 | disposition home or self-care (01) ==
LOC: NCHCN 14:46
PROVIDERS: PCP Nurse Practitioner Family; Visit Provider Nurse Practitioner Family
DX: Z83.79 Family history of other diseases of the digestive system (principal)
CPT/HCPCS: 82784; 83516

== ENCOUNTER 2021-12-02 18:01 | Outpatient (REF) | payer MEDICARE, MEDICAID, SELFPAY ==
[2021-12-02 21:18] LABS: Abs Immature Grans 0.02 10^3/uL (0.0-0.06); Absolute Basophil Count 0.03 10^3/uL (0.0-0.2); Absolute Eosinophil Count 0.18 10^3/uL (0.0-0.7); Basophils % 0.4; Eosinophils % 2.4; HCT 36.5 % (36.0-46.0); HGB 11.9 g/dL (11.2-15.7); Immature Grans % 0.3; Lymphocytes % 25.2; MCH 29.7 pg (27.0-33.0); MCHC 32.6 % (32.0-36.0); MCV 91 fL (80-95); MPV 11.5 fL (8.0-11.0); Neutrophils % 63.7; Platelet Count 262 10^3/uL (130-400); RBC 4.01 10^6/uL (3.93-5.22); RDW 12.8 % (11.7-14.6); RDW-SD 42.5 fL; WBC 7.53 10^3/uL (4.4-10.8)
[2021-12-02 21:27] LABS: Hemoglobin A1C 5.8 % (<5.7)
[2021-12-02 21:31] LABS: Mono Screening Negative (Negative)
== END 2021-12-02 18:02 | disposition home or self-care (01) ==
LOC: NCHCN 18:01
PROVIDERS: PCP Nurse Practitioner Family; Visit Provider Internal Medicine
DX: R53.83 Other fatigue (principal); M79.18 Myalgia, other site; R73.03 Prediabetes
CPT/HCPCS: 83036; 85025; 86308

== ENCOUNTER 2023-04-08 22:35 | Outpatient (REF) | payer MEDICARE, MEDICAID, SELFPAY ==
[2023-04-08 22:11] LABS: Iron 41 ug/dL (50-170); Total Iron Binding Capacity 425 ug/dL (250-450)
[2023-04-08 22:35] LABS: Ferritin 17 ng/mL (8-252); Folate 12.6 ng/mL (8.6-20.0); Vitamin B12 266 pg/mL (193-986)
== END 2023-04-08 22:36 | disposition home or self-care (01) ==
LOC: NCHCN 22:35
PROVIDERS: PCP Nurse Practitioner Family; Visit Provider Family Medicine
DX: D64.9 Anemia, unspecified (principal)
CPT/HCPCS: 82607; 82728; 82746; 83540; 83550

== ENCOUNTER → 2023-05-05 10:05 | Outpatient (CLI) | payer MEDICARE, MEDICAID, SELFPAY ==
--- NOTE | 2023-05-05 14:17 | DI.MAMMO_ITS ---
Exam(s) MAMMO SCREENING EXAM: MAMMO SCREENING CLINICAL HISTORY: SCREENING,Z12.31 TECHNIQUE: Bilateral full field digital CC and MLO mammographic images were obtained with 3D tomosyn thesis and utilizing computer aided detection (CAD). COMPARISON: Available for comparison. FINDINGS: Masses/Architectural Distortion: Focal asymmetric densities in both breast appears stable. No new no dules are seen. No areas of architectural distortion are present. Microcalcifications: No suspicious pleomorphic-type are seen. Skin Thickening/Nipple Retraction: None. IMPRESSION: 1. No significant interval change with no specific features of malignancy noted. 2. Unless there is more urgent need, screening mammography is recommended, as per [employer] guidelines. BI-RADS Category 2 - Benign Findings Breast Density - Category B - Scattered areas of fibroglandular density Breast density category C or D implies that the patient has dense breast tissue. Dense breast tissue is very common and is not abnormal but dense breast tissue can make it harder to find cancer on a ma mmogram. Also, dense breast tissue may increase their breast cancer risk. This information about the result of the mammogram report was provided to the patient to raise their awareness. Use this report when you speak with the patient about their risks for breast cancer, which includes their family hist ory. At that time, you may recommend for more screening tests (Ultrasound or MRI) as they might be us eful based on their risk. A negative radiographic report should not delay biopsy if a dominant or clinically suspicious mass is present. Up to ten percent of cancers are not identified on mammography. A negative report may reinforce clinical impression. Adenosis and dense breasts may obscure an underlying neoplasm. False positive reports average 6 to 10%. Patient will receive a letter notifying them of these results.
== END ==
PROVIDERS: PCP Nurse Practitioner Family; Visit Provider Family Medicine
DX: Z12.31 Encounter for screening mammogram for malignant neoplasm of breast (principal)
CPT/HCPCS: 77063; 77067

== ENCOUNTER 2023-07-02 18:45 | Outpatient (REF) | payer MEDICARE, MEDICAID, SELFPAY ==
[2023-07-02 14:42] LABS: Iron 30 ug/dL (50-170); Total Iron Binding Capacity 507 ug/dL (250-450); Transferrin Sat 6 % (15-50)
[2023-07-02 14:55] LABS: Ferritin 12 ng/mL (8-252)
[2023-07-06 13:43] LABS: IgA 310 mg/dL (85-499); Interpretation (See Note); Tissue Transglutaminase IgA <4.0 CU (<20.0)
== END 2023-07-02 18:46 | disposition home or self-care (01) ==
LOC: NCHCN 18:45
PROVIDERS: PCP Nurse Practitioner Family; Referring Provider Family Medicine; Visit Provider Family Medicine
DX: D64.9 Anemia, unspecified (principal); R10.9 Unspecified abdominal pain
CPT/HCPCS: 82784; 83516; 82728; 83540; 83550

== ENCOUNTER 2024-01-03 13:13 | Outpatient (REF) | payer MEDICARE, MEDICAID, SELFPAY ==
[2024-01-03 14:58] LABS: Abs Immature Grans 0.01 10^3/uL (0.0-0.06); Absolute Basophil Count 0.02 10^3/uL (0.0-0.2); Absolute Eosinophil Count 0.11 10^3/uL (0.0-0.7); Absolute Lymphocyte Count 1.67 10^3/uL (1.2-3.4); Absolute Monocyte Count 0.49 10^3/uL (0.1-0.8); Absolute Neutrophil Count 3.24 10^3/uL (1.2-6.7); Basophils % 0.4 %; HCT 43.9 % (36.0-46.0); HGB 14.4 g/dL (11.2-15.7); Immature Grans % 0.2 %; Lymphocytes % 30.1 %; MCH 29.3 pg (27.0-33.0); MCHC 32.8 % (32.0-36.0); MCV 89 fL (80-95); Monocytes % 8.8 %; Neutrophils % 58.5 %; Platelet Count 253 10^3/uL (130-400); RBC 4.91 10^6/uL (3.93-5.22); RDW 13.3 % (11.7-14.6); RDW-SD 43.8 fL; WBC 5.54 10^3/uL (4.4-10.8)
[2024-01-03 15:23] LABS: ALT 34 U/L (14-59); AST 33 U/L (15-37); Albumin 3.4 g/dL (3.4-5.0); Alkaline Phosphatase 113 U/L (46-116); Anion Gap 6.8 mmol/L (3-11); BUN 15 mg/dL (7-18); Bilirubin, Total 0.47 mg/dL (0.2-1.0); CO2 27.2 mmol/L (21.0-32.0); CREATININE 1.1 mg/dL (0.55-1.02); Calcium 9.4 mg/dL (8.5-10.1); Chloride 103 mmol/L (98-107); Estimated GFR 55.07 (mL/min/1.73m2); Glucose 94 mg/dL (74-106); Lipase 37 U/L (16-77); Potassium 3.9 mmol/L (3.5-5.1); Sodium 137 mmol/L (136-145); Total Protein 7.6 g/dL (6.4-8.2)
== END 2024-01-03 13:14 | disposition home or self-care (01) ==
LOC: NCHCN 13:13
PROVIDERS: PCP Nurse Practitioner Family; Visit Provider Family Medicine
DX: R10.9 Unspecified abdominal pain (principal)
CPT/HCPCS: 80053; 83690; 85025

== ENCOUNTER 2025-03-29 16:20 | Outpatient (REF) | payer MEDICARE, MEDICAID, SELFPAY ==
[2025-03-29 21:13] LABS: Abs Immature Grans 0.02 10^3/uL (0.0-0.06); HCT 34.2 % (36.0-46.0); HGB 10.6 g/dL (11.2-15.7); Immature Grans % 0.3 %; MCH 24.9 pg (27.0-33.0); MCHC 31.0 % (32.0-36.0); MCV 80 fL (80-95); MPV 10.5 fL (8.0-11.0); Platelet Count 317 10^3/uL (130-400); RBC 4.26 10^6/uL (3.93-5.22); RDW 15.4 % (11.7-14.6); RDW-SD 44.7 fL; WBC 6.32 10^3/uL (4.4-10.8)
[2025-03-29 21:39] LABS: ALT 34 U/L (10-49); AST 40 U/L (<34); Albumin 4.1 g/dL (3.2-5.0); Alkaline Phosphatase 117 U/L (46-116); Anion Gap 9.5 mmol/L (3-11); BUN 22 mg/dL (9-23); Bilirubin, Total 0.40 mg/dL (0.2-1.2); CO2 24.5 mmol/L (20.0-31.0); Calcium 8.9 mg/dL (8.3-10.6); Chloride 109 mmol/L (98-107); Ferritin 6 ng/mL (7-271); Glucose 81 mg/dL (74-106); Hemoglobin A1C 5.9 % (<5.7); Potassium 4.0 mmol/L (3.5-5.1); Sodium 143 mmol/L (136-145); Total Protein 7.2 g/dL (5.7-8.2)
[2025-03-29 22:16] LABS: Iron 34 ug/dL (50-170); Total Iron Binding Capacity 492 ug/dL (250-425)
== END 2025-03-29 16:21 | disposition home or self-care (01) ==
LOC: NCHCN 16:20
PROVIDERS: PCP Nurse Practitioner Family; Visit Provider Family Medicine
DX: R73.03 Prediabetes (principal); E61.1 Iron deficiency; N18.31 Chronic kidney disease, stage 3a
CPT/HCPCS: 80053; 82728; 83036; 83540; 83550; 85025